=== PATIENT | male | born 1945 | race Caucasian/White ===

== ENCOUNTER → 2023-04-24 07:08 | Outpatient (REF) | payer MEDICARE, SELFPAY | LOC: HWRAD 07:08 | PROVIDERS: ATTENDING PHYSICIAN Physician Assistant; FAMILY PHYSICIAN Family Medicine | DX: E04.2 Nontoxic multinodular goiter (principal) | CPT/HCPCS: 76536 ==

== ENCOUNTER → 2023-10-31 08:27 | Outpatient (REF) | payer MEDICARE, SELFPAY | LOC: HWRAD 08:27 | PROVIDERS: ATTENDING PHYSICIAN Nurse Practitioner Adult Health; FAMILY PHYSICIAN Family Medicine | DX: Z87.891 Personal history of nicotine dependence (principal) | CPT/HCPCS: 71271 ==

== ENCOUNTER 2023-11-09 13:48 | Inpatient (IN) | payer MEDICARE, SELFPAY ==
[2023-11-09] VITALS (34 sets, daily range): BP systolic 50–151; BP diastolic 47–80; BMI 25.4
--- NOTE | 2023-11-09 09:31 | ED.GENMED ---
History of Present Illness
General
Chief Complaint: Abdominal Pain
Time Seen by Provider: 11/09/23 09:16
History of Present Illness
History of Present Illness:
78-year-old male with history of hypertension and hyperlipidemia presenting to the emergency department for lower abdominal pain. Patient reports symptoms for the past 2 days. Reports issues with constipation in the past. Reports that he has been
constipated, last bowel movement was 2 days ago, has been straining. He tried oral stool softeners without relief. Today he was unable to pass gas. Denies any significant abdominal surgeries. Denies any urinary complaints. Reports history of
hernia, however has not had issues with it. Reports episode of vomiting this morning. Denies chest pain or difficulty breathing. Denies any fever. Denies additional acute medical complaints.
Phy Exam
Physical Exam
Physical Exam:
General: Nontoxic, however uncomfortable secondary to pain
HEENT: protecting airway
Neck: appears supple
CV: Normal heart rate, regular rhythm, no evidence of cyanosis
Resp: No accessory muscle use, no increased work of breathing
Abd: Hypoactive bowel sounds, abdominal distention with generalized tenderness to the lower abdomen
Extremities: No deformities, no swelling, no erythema
Neuro: alert, no focal neurologic deficit
: deferred
Rectal: deferred
Psych: Normal affect
Skin: Intact
Course
Orders/Labs/Results
Orders:
Orders
11/09/23 09:25
0.9% Sodium Chloride 1000 ml [Nss] 1,000 ml IV BOLUS
Morphine Sulfate 4 mg IV NOW STA
Ondansetron Injectable [Zofran] 4 mg IV NOW STA
11/09/23 09:27
CT Abd/pelvis W Iv Cont Urgent
Comment:
Reason For Exam: lower abdominal pain, constipation, vomiting
11/09/23 09:36
CR Chest Portable - 1 View Urgent
Comment:
Reason For Exam: r/o free air
Reason Study Needs to be Portable: Patient Unstable
11/09/23 09:39
Complete Blood Count/With Diff Urgent
Comprehensive Metabolic Panel Urgent
Lactate Level [Lactic Acid] Urgent
Lipase Urgent
PTT Urgent
Prothrombin Time Urgent
11/09/23 10:08
0.9% Sodium Chloride 1000 ml [Nss] 1,000 ml IV BOLUS
11/09/23 11:03
Morphine Sulfate 4 mg IV NOW STA
11/09/23 11:20
Piperacillin/Tazo 4.5 Gram [Zosyn] 4.5 gram in 100 ml IV NOW
11/09/23 12:07
Urinalysis Reflex To Culture Urgent
Date Specimen was Collected: 11/09/23
Time Specimen was Collected: 11:59
Urine Microscopic Reflex Cult Urgent
Urine Culture Urgent
PATSY Source: U
Specimen Description:
Date Specimen was Collected: 11/09/23
Time Specimen was Collected: 11:59
11/09/23 13:04
Admit/Transfer Patient As Directed
Co-Sign Provider:
Level of Care: Inpatient admission
Assign to:: IMU- Intermediate Care
Physician / Group: Mikel
Diagnosis: perforated diverticulitis
Reason for Hospitalization: perforated diverticulitis
Expected length of stay greater than two midnights?: Yes
ELOS- Estimated Length of Stay in days: 5
I certify the patient meets the requirements for IP care: Yes
11/09/23 13:21
Code Status As Directed
Resuscitation Status: Full Code
11/09/23 13:34
HydrALAZINE [Apresoline] 10 mg IV Q6HPRN PRN
11/09/23 14:00
0.9% Sodium Chloride [Nss (Preservative Free)] 10 ml IV DAILY
Pantoprazole [Protonix IV] 40 mg IV DAILY
11/09/23 14:03
Lactate Level [Lactic Acid] Urgent
11/09/23 14:25
Morphine Sulfate 2 mg IV Q4HPRN PRN
11/09/23 Dinner
NPO
Allow oral meds: Yes
Allow clear liquids: No
NPO with Ice Chips: No
11/09/23 15:27
Ketorolac [Toradol] 10 mg IV Q6HPRN PRN
11/09/23 18:49
0.9% Sodium Chloride 1000 ml [Nss] 1,000 ml IV 100 mls/hr
Enoxaparin Sodium [Lovenox] 40 mg SC QPM
Ondansetron Injectable [Zofran] 4 mg IV Q6HPRN PRN
11/09/23 18:49
ColoRectal Surgery Consult Routine
Consulting Provider: Derek Boone
Was physician already notified: Yes
Reason for consult: perforated diverticulitis
Activity As Directed
Activity Level: Out of Bed-Early Mobility
Vital Signs As Directed
Frequency: Per unit guidelines
DX Deep Vein Thrombosis Video Routine
11/10/23 00:00
Piperacillin/Tazo 3.375 Gram [Zosyn] 3.375 gram in 50 ml IV Q6
11/10/23 04:32
Basic Metabolic Panel IN AM
Complete Blood Count/With Diff IN AM
Magnesium IN AM
Abnormal Lab Results
11/09/23 11/09/23
09:39 12:07
WBC 15.6 H 10^3/uL
(4.8-10.8)
RBC 4.04 L 10^6/uL
(4.70-6.10)
Hgb 12.7 L g/dL
(13.0-18.0)
Hct 37.0 L %
(39.0-52.0)
MCH 31.4 H pg
(27.0-31.0)
MPV 11.5 H fL
(7.4-10.4)
Abs Immat Gran (auto) 0.1 H 10^3/uL
(0-0.05)
Absolute Neuts (auto) 14.5 H 10^3/uL
(1.4-6.5)
Absolute Lymphs (auto) 0.8 L 10^3/uL
(1.2-3.4)
Immature Gran % 0.6 H %
(0-0.5)
Neutrophils % 89.9 H %
(42.2-75.2)
Lymphocytes % 5.3 L %
(20.5-51.1)
APTT 35.5 H Sec
(23.4-35.0)
Chloride 97 L mmol/L
(98-107)
BUN 24 H mg/dl
(9-20)
Glucose 121 H mg/dl
(70-99)
Lactic Acid 4.2 H* mmol/L
(0.7-2.0)
Urine Ketones 2+ A
(Negative)
Leukocyte Esterase Rfl Trace A
(Negative)
Urine WBC (Reflex) 11-15 A /HPF
(0-5)
Urine Bacteria (Reflex) Few A
(Negative)
11/09/23 09:39
11/09/23 09:39
Vital Signs
Initial and Last Documented VS:
Initial Vital Signs
Temp Pulse Resp BP Pulse Ox
97.9 F 86 18 127/80 98
11/09/23 08:24 11/09/23 08:24 11/09/23 08:24 11/09/23 08:24 11/09/23 08:24
Last Documented Vital Signs
Temp Pulse Resp BP Pulse Ox
98.4 F 60 14 114/54 97
11/10/23 07:00 11/10/23 07:00 11/10/23 07:00 11/10/23 07:11/10/23 07:00
MDM/Problems Addressed
MDM/Problems Addressed:
78-year-old male with history of hypertension and hyperlipidemia presenting for abdominal pain and constipation. Vital signs on arrival are normal.
On exam, patient is in no acute distress, however does appear relatively uncomfortable secondary to pain. Patient with hypoactive bowel sounds, abdominal distention and generalized tenderness to lower abdomen. In the setting of constipation, pain,
vomiting, concern for bowel obstruction. For this reason we will obtain laboratory analysis. Morphine administered for pain. Will start IV fluids. Will order lactic. Will also obtain upright chest x-ray to evaluate for free air in the setting
of possible bowel perforation.
10:10 -patient with significant elevation of lactic acid. Chest x-ray without sign of free air. Will continue IV fluids. Will redose pain medication. Pending CT imaging.
11:00 -patient with leukocytosis. With leukocytosis, elevated lactic acid, concern for infectious pathology. Will administer broad-spectrum antibiotics.
12:10 -received call from radiology, CT is positive for diverticulitis with perforation, no abscess. Message sent to surgery
*Critical Care Note
Total Time (30-74mins, 75-104mins- exclusive of procedures): 36
comment:
The high probability of a clinically significant, sudden or life threatening deterioration, sepsis and severe intra-abdominal pathology, required my full and direct attention, intervention and personal management. The aggregate critical care time
was 36 minutes. This time is in addition to time spent performing reported procedures but includes the following:
[x] Data Review and interpretation
[x] Patient assessment and monitoring of vital signs
[x] Documentation
[x] Medication orders and management
ED Attending Note
-
Portions of this chart may have been created with voice recognition software.� Occasional wrong word or��sound alike� substitutions may have occurred due to the inherent limitations of voice recognition software.
Discharge Plan
Departure
Patient Disposition: Admit
Date of Disposition: 11/09/23
Time of Disposition: 12:29
Presentation/result/management discussed w/ accepting MD/DO: Hospitalist
Condition: Serious
Discharge Problem:
Diverticulitis of colon with perforation
Interventions
Interventions:
*Risk Screen - Suicide Last Done: 11/09/23 20:56
*General Assessment Last Done: 11/09/23 09:25
*Neglect/Abuse Screening Last Done: 11/09/23 09:25
ED- Fall Risk Assessment Last Done: 11/09/23 09:25
*ED COVID-19 Vaccine History Last Done: 11/09/23 20:56
*Nursing Disposition Last Done: 11/09/23 16:23
JS-Wnbumw-Oekgohshjf Assessment Last Done: 11/09/23 09:25
Discharge Date and Time
Discharge Date/Time: 11/09/23 16:10
[2023-11-09] MEDS: NSS 1000 IV ×3 (09:33→20:08)
[2023-11-09] MEDS: MORPHINE SULFATE 4 MG IV ×2 (09:33→11:08)
[2023-11-09] MEDS: ZOFRAN 4 MG IV (09:34)
[2023-11-09 10:00] LABS: INR 1.15; PT 14.5 Sec (11.4-14.6)
[2023-11-09 10:01] LABS: APTT 35.5 Sec (23.4-35.0)
[2023-11-09 10:03] LABS: ALT (SGPT) 20 U/L (0-50); AST (SGOT) 34 U/L (17-59); Albumin 4.8 g/dl (3.5-5.0); Alkaline Phosphatase 95 U/L (38-126); Blood Urea Nitrogen 24 mg/dl (9-20); Calcium 9.7 mg/dl (8.4-10.2); Carbon Dioxide 29 mmol/L (22-30); Chloride 97 mmol/L (98-107); Estimated Creatinine Clearance 52 ml/min; Glucose 121 mg/dl (70-99); Lipase 79 U/L (23-300); Potassium 3.8 mmol/L (3.5-5.1); Sodium 142 mmol/L (135-145); Total Protein 7.5 g/dl (6.3-8.2); eGFR > 60.00
[2023-11-09 10:05] LABS: Lactic Acid 4.2 mmol/L (0.7-2.0)
[2023-11-09 10:35] LABS: Hemoglobin 12.7 g/dL (13.0-18.0); Mean Corp Hgb Conc. 34.3 g/dL (33.0-37.0); Mean Corpuscular Hgb 31.4 pg (27.0-31.0); Mean Corpuscular Volume 91.6 fL (80.0-94.0); Red Blood Cell Count 4.04 10^6/uL (4.70-6.10); White Blood Cell Count 15.6 10^3/uL (4.8-10.8)
[2023-11-09 10:36] LABS: Mean Platelet Volume 11.5 fL (7.4-10.4); Platelet Count 157 10^3/uL (130-400)
[2023-11-09 10:37] LABS: % Lymphocytes 5.3 % (20.5-51.1); % Monocytes 3.8 % (1.7-9.3); % Neutrophils 89.9 % (42.2-75.2); Red Cell Dist. Width 14.4 % (11.5-14.5)
[2023-11-09 10:38] LABS: % Basophils 0.4 % (0-2); % Immature Granulocytes 0.6 % (0-0.5); Absolute Lymphocytes 0.8 10^3/uL (1.2-3.4); Absolute Monocytes 0.6 10^3/uL (0.1-0.6); Absolute Neutrophils 14.5 10^3/uL (1.4-6.5)
[2023-11-09 10:39] LABS: Absolute Basophils 0.1 10^3/uL (0-0.2); Absolute Immature Granulocytes 0.1 10^3/uL (0-0.05); Nucleated Red Blood Cells % 0 % (-)
[2023-11-09] MEDS: ZOSYN 100 IV (12:00)
[2023-11-09 12:53] LABS: Urine Albumin Trace (Neg - Trace); Urine Bilirubin Negative (Negative); Urine Character Clear (Clear); Urine Color Yellow; Urine Glucose Negative (Negative); Urine Ketone 2+ (Negative); Urine Leukocyte Trace (Negative); Urine Nitrite Negative (Negative); Urine Occult Blood Negative (Negative); Urine Specific Gravity 1.005 (<1.030); Urine Urobilinogen Negative (Neg - 1+)
--- NOTE | 2023-11-09 13:03 | HPS.HSE ---
Family Physician
-
Family Physician: Sal Ryan
Chief Complaint
-
Lower abdominal pain
History of Present Illness
78-year-old male with history of hypertension, Giles esophagus and dyslipidemia who lives independently at home with the , presented to the hospital with the family complaining of the 3-day of the intermittent lower abdominal pain and
pressure, associated with chronic constipation worse in the last couple of day and have not increased urinary frequency and feeling of urgency, denies any rectal bleed or hematuria denies any fever or chill or cough or congestion. Admit the pain is
moderate in nature relieved anytime he is able to move his bowel. No colitis, and no triggering factor.
Denies chest pain or shortness of breath or cough or congestion.
Workup in the ER showed perforated diverticulum and surgery been contacted and recommended n.p.o., IV antibiotic and they will see patient on consult.
Patient awake, alert and oriented x 3 and holds appropriate conversation and accompanied by the and son and daughter at the bedside. Had colonoscopies in the past and he has no recollection of he was told he had diverticulosis on not.
Medical History
Past Medical History
Past Medical History: Reports None
Additional Past Medical History:
Past medical history reviewed:
Hypertension
Dyslipidemia
Giles esophagus
Social history: Lives with independently, former smoker and drinks 2 drinks daily for quite some time,
Family history: Reviewed and noncontributory
Past Surgical History: Reports None
Social History
Unable to obtain full social history at this time due to: Other
Living: Other
Family History
Family History: Other
Allergies / Home Medications
Allergies reflects when Allergies were last updated in [employer].
Home Medications with original date entered in [employer]
Allergy/Medication List:
Allergies
Allergy/AdvReac Type Severity Reaction Status Date / Time
No Known Allergies Allergy Verified 11/09/23 08:29
Home Medications
atorvastatin 20 mg tablet 20 mg PO DAILY 11/08/21
ferrous sulfate 325 mg (65 mg iron) tablet 325 mg PO BID 11/08/21
hydrochlorothiazide 12.5 mg capsule 12.5 mg PO DAILY 11/08/21
lisinopril 20 mg tablet 20 mg PO DAILY 11/08/21
omeprazole 20 mg tablet,delayed release 20 mg PO DAILY 11/08/21
vitamins A,C,U-syzf-ddtzvk 4,296 mcg-226 mg-90 mg capsule (PreserVision AREDS) 1 cap PO BID 11/08/21
Review of Systems
-
A 12 point ROS was completed and negative except as noted: Yes
Physical Exam
Vital Signs
Vital Signs
Temp Pulse Resp BP Pulse Ox
97.9 F 113 26 134/75 91
11/09/23 08:24 11/09/23 12:30 11/09/23 12:30 11/09/23 12:00 11/09/23 12:30
Physical exam:
General: Awake, alert and oriented x3, not in distress and holds appropriate conversation.
HEENT: No active discharge, ecchymosis or bruising, moist lips, tongue and mucous membrane.
Eyes: No discharge or red conjunctiva, no nystagmus, pupils are reactive and equal
Neck:Supple, no JVD no bruit no goiter.
Respiratory: Normal AP contour and diameter, normal chest wall movement, normal respiratory effort, no respiratory distress,
Lungs: Good air entry bilaterally, no wheezing or rhonchi, no rales or crackles
Heart: S1, S2 regular, normal rate, no added sound.
Gastrointestinal: Positive bowel sounds, soft, mild lower abdominal tenderness with no guarding or rigidity or organomegaly
Musculoskeletal: , no chest wall abnormality or tenderness. All joints and extremities have good range of motion, no muscle tenderness or any joint swelling or tenderness.
Extremities: No pitting edema, good peripheral pulses, good range of motion
Skin: Warm and dry, no ulceration, normal color.
Neurological: Awake, alert and oriented x3, no facial droop, moves extremities freely speech clear and comprehensive, good muscle tone
Psychiatric: Normal mood, normal thought and judgment, normal affect,
Physical Exam
General: Other
Laboratory Results
-
11/09/23 09:39
11/09/23 09:39
Laboratory Results
PT 14.5 Sec (11.4-14.6) 11/09/23 09:39
INR 1.15 11/09/23 09:39
APTT 35.5 Sec (23.4-35.0) H 11/09/23 09:39
Lactic Acid 4.2 mmol/L (0.7-2.0) H* 11/09/23 09:39
Total Bilirubin 1.0 mg/dl (0.2-1.3) 11/09/23 09:39
AST 34 U/L (17-59) 11/09/23 09:39
ALT 20 U/L (0-50) 11/09/23 09:39
Alkaline Phosphatase 95 U/L (38-126) 11/09/23 09:39
Lipase 79 U/L (23-300) 11/09/23 09:39
CT abdomen and pelvis: Large focal perforation of the mid sigmoid colon due to acute diverticulitis . No evidence of abscess formation.
Bilateral renal cysts.
Mild fecal material in the colon.
Small hiatal hernia
Mild prostate hypertrophy
Data Reviewed
-
CT Scan: Image Personally Visualized and interpreted, Report Reviewed by me, Discussed with Patient and Discussed with Family
Lab Data: Labs Reviewed by me, Discussed with Patient and Discussed with Family
Old Records: Reviewed
Impression/Plan
-
IMPRESSION:
Pleasant 78-year-old male with history of hypertension and Giles's esophagus, presented to the hospital complaining of the lower abdominal pain and pressure over the last few day workup showed perforated diverticulum.
Sepsis, with leukocytosis white cell count more than 15 and tachycardia heart rate went as high as 113, likely secondary to perforated diverticulum
-Keep n.p.o. even for meds
-Colorectal surgery been contacted and they are aware, consult colorectal surgery
-IV Zosyn
-IV fluid
-IV morphine and Zofran as needed
-Try to avoid rectal Tylenol will put him on Toradol as needed for moderate pain and fever if any
-Diverticulitis appropriately diverticulitis explained to the patient and family in detail and expressed understanding
-Recheck labs.
Perforated diverticulitis: Manage as above
Abnormal urinalysis: Other than feeling increased urgency, UTI could be a possibility will be related to perforated diverticulitis causing bladder irritation.
-Patient already on Zosyn
-Urine culture
Hypertension:
-Hold his home lisinopril and HCTZ
-Add hydralazine as needed for systolic more than 160
Giles esophagus
-On omeprazole orally we will hold it and changed to Protonix IV
-Dyslipidemia will hold Lipitor for now.
All discussed with the patient and the family in detail and expressed understanding
CODE STATUS full code
DVT prophylax Lovenox
[2023-11-09 13:14] LABS: Urine Bacteria Few (Negative); Urine Red Blood Cell 0-2 /HPF (0-2)
--- NOTE | 2023-11-09 13:28 | CON.CRS ---
Addendum entered and electronically signed by Derek Boone MD 11/09/23 14:36:
I saw and examined the patient independently.
The Music Director's note was reviewed and I agree with the note, assessment and plan except where noted below.
Comment: This is a 78-year-old male who presents with 3-day history of worsening left lower quadrant pain with associated chills, vomiting. He has had somewhat similar pain in the past that resolved on its own. He does have a colonoscopy from
roughly 8 years ago which noted diverticular disease but no other concerning findings. Here he is noted to be tachycardic, diffusely tender to palpation with rebound and guarding and with a leukocytosis to 15,000. CT scan demonstrates sigmoid
diverticulitis with scattered dots of free air but no overt abscess.
Given his exam I do not think antibiotics alone will suffice. We did discuss operative options from laparoscopic lavage to open Kalina's procedure. He understands the surgical plan will primarily depend on what is found intraoperatively, for now
we will plan to start with a laparoscopic lavage.
N.p.o., IV fluids, IV antibiotics.
Risks/Benefits/Alternatives, expected postoperative course, possible ostomy, drains and possible complications (bleeding, infection, injury to surrounding structures, acute/chronic pain) discussed at length. Patient wishes to proceed with surgery.
All questions answered. Consent obtained.
I spent roughly 60 minutes in total for the care of this patient today including direct patient care and counseling, reviewing labs, imaging, coordination of care, as well as documentation.
Original Note:
Medical History
-
Chief Complaint: abdominal pain
History of Present Illness:
This is a 78 yo male with a h/o HTN and CKD who presents with lower abdominal pain which began about 3 days ago and has progressively worsened. He has been passing flatus with some straining but has not been had a BM for 2 days. He denies changes to
voiding pattern. He had an episode of nausea with vomiting this morning but none since. He denies fevers or chills. He notes he is comfortable at rest but does have pain to light palpation to the lower abdomen right greater than left. His last
colonoscopy was about 8 years ago with noted diverticular disease of the sigmoid and descending colon noted on that study. He notes no prior incidence of diverticulitis in the past.
Past Medical History
Past Medical History: GERD (Giles's ), HTN, Hypercholesterolemia, Renal Failure (CKD) and Other (autoimmune leukopenia, iron deficiency anemia)
Past Surgical History: Orthopedic (left hand)
Social History
Tobacco: Former Smoker (quit 2013)
Family History
Family History: Reviewed & Not Pertinent
Allergies / Home Medications
Allergy/AdvReac Type Severity Reaction Status Date / Time
No Known Allergies Allergy Verified 11/09/23 08:29
�Medication �Instructions �Recorded �Confirmed �Type
atorvastatin 20 mg tablet 20 mg PO DAILY 11/08/21 11/09/23 History
ferrous sulfate 325 mg (65 mg 325 mg PO BID 11/08/21 11/09/23 History
iron) tablet
hydrochlorothiazide 12.5 mg capsule 12.5 mg PO DAILY 11/08/21 11/09/23 History
lisinopril 20 mg tablet 20 mg PO DAILY 11/08/21 11/09/23 History
omeprazole 20 mg tablet,delayed 20 mg PO DAILY 11/08/21 11/09/23 History
release
vitamins A,C,S-oiqd-fsgzzg 4,296 1 cap PO BID 11/08/21 11/09/23 History
mcg-226 mg-90 mg capsule
(PreserVision AREDS)
Review of Systems
-
History Source: Patient and Family
All other systems: Negative unless noted
A 10 point review of systems was completed, and was negative except as per HPI.
Physical Exam
Vital Signs
Temp 97.9 F 11/09/23 08:24
Pulse 113 11/09/23 12:30
Resp Rate 26 11/09/23 12:30
Blood pressure 134/75 11/09/23 12:00
SaO2 91 11/09/23 12:30
11/08/23 11/09/23 11/10/23
06:59 06:59 06:59
Actual Weight 71.214 kg
Body Mass Index (BMI) 25.4
Lab Results / Allergies
11/09/23 09:39
11/09/23 09:39
WBC 15.6 10^3/uL (4.8-10.8) H 11/09/23 09:39
Hgb 12.7 g/dL (13.0-18.0) L 11/09/23 09:39
Hct 37.0 % (39.0-52.0) L 11/09/23 09:39
Plt Count 157 10^3/uL (130-400) 11/09/23 09:39
Abs Immat Gran (auto) 0.1 10^3/uL (0-0.05) H 11/09/23 09:39
Neutrophils % 89.9 % (42.2-75.2) H 11/09/23 09:39
Allergy/AdvReac Type Severity Reaction Status Date / Time
No Known Allergies Allergy Verified 11/09/23 08:29
Physical Exam
General: Well Developed and Comfortable
HEENT: Moist Mucous Membranes
Respiratory: Non Labored Respirations
GI: Soft, Tender (significantly tender to BLLQ R>L, no tenderness to upper abdomen) and Distended (mild)
Skin: Warm and Dry
Neuro: Awake, Alert and AO x 3
Psych: Calm
Data Reviewed
-
CT Scan: Image Personally Visualized and interpreted, Report Reviewed by me, Discussed with Physician, Discussed with Nurse, Discussed with Patient and Discussed with Family
Labs: Labs Reviewed by me, Discussed with Physician, Discussed with Nurse, Discussed with Patient and Discussed with Family
Old Records: Reviewed
Assessment / Plan
-
78 yo male presenting with complicated diverticulitis with focal air consistent with perforation of the mid sigmoid colon without associated abscess. +Constipation but passing some small amounts of flatus x2days. Leukocytosis present with
significant tenderness to lower abdomen. Tachycardic but afebrile with stable BP.
--Keep NPO for bowel rest
--Continue IV abx
--IVF while NPO
--Analgesics prn
Discussed disease process with patient. If surgery is required, will likely require colostomy for diversion in the emergency setting. Will review films/imaging with attending surgeon to determine if emergent surgery is warranted today. Will follow
exams/vitals closely.
[2023-11-09] MEDS: OFIRMEV 1000 MG IV (14:14)
[2023-11-09 14:28] LABS: Lactic Acid 0.8 mmol/L (0.7-2.0)
--- NOTE | 2023-11-09 14:36 | W.SUR.PREOP ---
Pre-Operative Surgical Note
-
I have examined this patient prior to the performance of the scheduled procedure.
The patient's condition is unchanged from the time of the current History and
Physical and the patient is able to undergo the scheduled procedure.
[2023-11-09] MEDS: TORADOL 10 MG IV (15:51)
--- NOTE | 2023-11-09 18:58 | W.IMMPOSTOP ---
Surgical Immed Post Op Note
-
Primary Surgeon: Derek Booen MD
Assisting Surgeon: Jenae Baez
Pre-op Diagnosis: Perforated diverticulitis
Post-op Diagnosis: Same
Procedure Performed: Laparoscopic, converted to open sigmoid colectomy
Anesthesia Type: General
Specimen / Cultures: Sigmoid colon
Estimated Blood Loss: 23 cc
Complications: None
Operative Findings: Hinchy IV diverticulitis with stool and pus primarily confined to the pelvis. Minimal inflammation. We began our dissection laparoscopically but failed to progress distally given how stuck things were in the pelvis so we
converted to an open procedure. Disease segment of sigmoid colon removed. Rectal stump tagged with Prolene stitch. Patient left in discontinuity, with plan to return to the OR on Saturday.
POST OP PLAN:
Imaging: None
Labs: Routine AM
Diet: Strict n.p.o. except for sips with p.o. meds
Analgesia: IV Tylenol, Toradol and Dilaudid as needed
Neuro/vascular checks: q4h
AC/AP: Hold Therapeutic AC, Ok for DVT PPx
Activity: Ad Mounika
Wound/Incisions/Drains: Routine, ANGEL to bulb suction
Abx: Continue antibiotics
Dispo: RNF, anticipate return to the OR on Saturday
[2023-11-09] MEDS: OFIRMEV 100 IV (19:43)
[2023-11-09] MEDS: LOVENOX 40 MG SC (19:50)
[2023-11-09] MEDS: NSS (PRESERVATIVE FREE) 10 ML IV (19:54)
[2023-11-09] MEDS: PROTONIX IV 40 MG IV (19:54)
--- NOTE | 2023-11-09 21:45 | PTCARENOTE ---
20:45 pt rec'vd from PACU, aaox3, NG tube via L nare intact marked at 53, set to low inter suction. Primaseal drsg to mid abd site pinpoint staining, bilateral to mid primaseal drsg , 2x2 telfa drsg covered with tegaderm and RLQ with sponge dressing
over J-P tubing. Pt vs WNL, IVF in place, denies pain at this time, oriented to unit.
[2023-11-09] MEDS: ZOSYN 50 IV (23:57)
[2023-11-10] MEDS: OFIRMEV 100 IV ×3 (01:38→13:33)
[2023-11-10 03:17] VITALS: BP 90/61
[2023-11-10] MEDS: ZOSYN 50 IV ×3 (05:59→17:14)
[2023-11-10] MEDS: NSS 1000 IV ×2 (05:59→17:14)
[2023-11-10 06:03] LABS: % Basophils 0.1 % (0-2); % Immature Granulocytes 1.5 % (0-0.5); % Lymphocytes 2.7 % (20.5-51.1); % Monocytes 3.8 % (1.7-9.3); % Neutrophils 91.9 % (42.2-75.2); Absolute Immature Granulocytes 0.3 10^3/uL (0-0.05); Absolute Lymphocytes 0.5 10^3/uL (1.2-3.4); Absolute Monocytes 0.7 10^3/uL (0.1-0.6); Absolute Neutrophils 17.9 10^3/uL (1.4-6.5); Hematocrit 29.7 % (39.0-52.0); Mean Corp Hgb Conc. 33.7 g/dL (33.0-37.0); Mean Corpuscular Hgb 32.8 pg (27.0-31.0); Mean Corpuscular Volume 97.4 fL (80.0-94.0); Mean Platelet Volume 11.7 fL (7.4-10.4); Nucleated Red Blood Cells % 0 % (-); Platelet Count 99 10^3/uL (130-400); Red Blood Cell Count 3.05 10^6/uL (4.70-6.10); Red Cell Dist. Width 14.4 % (11.5-14.5); White Blood Cell Count 19.5 10^3/uL (4.8-10.8)
[2023-11-10 06:18] LABS: Blood Urea Nitrogen 23 mg/dl (9-20); Carbon Dioxide 25 mmol/L (22-30); Chloride 102 mmol/L (98-107); Estimated Creatinine Clearance 44 ml/min; Glucose 82 mg/dl (70-99); Potassium 3.7 mmol/L (3.5-5.1); Sodium 140 mmol/L (135-145); eGFR 56.93
[2023-11-10 07:00] VITALS: BP 114/54
[2023-11-10] MEDS: CALCIUM CHLORIDE 10% SYRINGE 70 MG IV (08:22)
[2023-11-10] MEDS: NSS (PRESERVATIVE FREE) 10 ML IV (08:23)
[2023-11-10] MEDS: PROTONIX IV 40 MG IV (08:23)
--- NOTE | 2023-11-10 10:20 | CM ---
Patient who is s/p colectomy. Plan OR tomorrow. O2 2L. ANGEL drain. Receiving IV Abx. NPO/IVF.
Met with patientwho resides with his ex- in a 2 story house with 3 EMERALD.
The patient has been independent in ADLs and ambulation.
The patient has no DME, prior VN or SNF.
PCP - Sal Ryan
Pharmacy - [facility]
Patient unsure he will want VN at home, possibly if any drains remain at d/c.
CM continuing to follow for d/c needs.
Plan home.
[2023-11-10 11:00] VITALS: BP 115/61
--- NOTE | 2023-11-10 11:02 | W.PN.GS2 ---
Addendum entered and electronically signed by Derek Boone MD 11/10/23 11:21:
I saw and examined the patient independently.
The Loading Manager's note was reviewed and I agree with the note, assessment and plan except where noted below.
Comment: This is a 78-year-old male with Hinchy 4 perforated diverticulitis now postoperative day 1 laparoscopic converted to open sigmoidectomy. Patient in discontinuity.
Strict n.p.o. except for meds. NG tube to low intermittent wall suction.
Will return to the OR tomorrow for planned second look operation and hopefully intracorporeal anastomosis versus ostomy pending on the inflammation in the surgical field.
Continue Cheney
Continue IV fluids, antibiotics
Continue ANGEL to bulb suction
General Surgery will continue to follow.
Original Note:
Today's Communication / Plan
-
OR tomorrow
NGT to suction
Assessment / Plan
-
78 yo male who presented with acute perforated sigmoid diverticulitis now POD #1 lap converted to open sigmoidectomy, patient in discontinuity with rectal stump tagged intraop
Afebrile since surgery, tachycardia resolved. VSS
Leukocytosis present in setting of acute infection
Mild acute anemia present likely d/t hemodilution with volume resuscitation, minimal intraop blood loss and no evidence of active bleeding
--Continue strict NPO with NGT to LIWS
--Plan to return to OR tomorrow for laparotomy with intracorporeal anastomosis
--Continue cheney
--Continue IVF
--C/W ANGEL drain
--C/W ABX: OR cx sent and pending
--Continue analgesics/antiemetics as needed
--VTE ppx with lovenox and scds
Subjective Data
-
Date of Service: November 10, 2023
Patient seen and examined at bedside with Dr. Boone. Denies n/v. Minimal discomfort to left abd.
Objective Data
-
Intake and Output
11/09/23 11/10/23 11/11/23
06:59 06:59 06:59
Intake Total 1969 / 1969
Output Total 1110 / 1110
Balance 860 / 860
Intake:
IV fluids (Total) 1400 / 1400
Normosal 400 / 400
IV piggybacks 450 / 450
Amount instilled into GI Tube ( 120 / 120
Total)
[place] Sump 120 / 120
Output:
Drain Output (Total) 170 / 170
Right Lower Abdomen Varinder- 170 / 170
Carter
Gastrointestinal tube output ( 130 / 130
Total)
[place] Sump 130 / 130
Urine, Cheney 610 / 610
Urine, Voided 200 / 200
Vital Signs
Temp Pulse Resp BP Pulse Ox
98.4 F 60 14 114/54 97
11/10/23 07:00 11/10/23 07:00 11/10/23 07:00 11/10/23 07:00 11/10/23 07:00
Lab Results
11/10/23 04:32
11/10/23 04:32
Calcium 7.0 mg/dl (8.4-10.2) L D 11/10/23 04:32
Magnesium 2.0 mg/dl (1.6-2.3) 11/10/23 04:32
Total Bilirubin 1.0 mg/dl (0.2-1.3) 11/09/23 09:39
AST 34 U/L (17-59) 11/09/23 09:39
ALT 20 U/L (0-50) 11/09/23 09:39
Alkaline Phosphatase 95 U/L (38-126) 11/09/23 09:39
Total Protein 7.5 g/dl (6.3-8.2) 11/09/23 09:39
Albumin 4.8 g/dl (3.5-5.0) 11/09/23 09:39
Physical Exam
-
NAD
ABD soft, nd, mild tenderness to left side
Incisions with intact dressing, shadowing on midline dressing (aquacel), NGT low outputs (bilious)
Cheney with clear, yellow urine
--- NOTE | 2023-11-10 11:11 | W.PN.HOSP.TC ---
Today's Communication/Plan
-
Strict n.p.o. status
Continue IV Zosyn empirically and follow cultures
Planning for OR tomorrow for anastomosis
Hold antihypertensive agents for now
Assessment / Plan
Assessment / Plan
#Sepsis secondary to perforated diverticulum
#S/P open sigmoid colectomy
#Acute diverticulitis
-Presented with lower abdomen pain, constipation and vomiting over multiple days
-CT A/P with IV contrast showed large focal perforation of the mid sigmoid colon with acute diverticulitis
-No evidence of abscess formation; was started on IV Zosyn empirically on arrival
-Initially to be managed conservatively though blood pressure worsened necessitating early LR
-Successful open sigmoid colectomy performed yesterday, no reanastomosis attempted as of yet
-Surgery following, planning for anastomosis tomorrow
Plan
-Continue strict n.p.o. status, NGT to LIWS
-Continue with ANGEL drain and monitor output
-Continue with empiric Zosyn and follow-up cultures
-Continue with analgesic/antiemetic regimen
-Trend CBC consider supportive transfusions for anemia/thrombocytopenia
-Plan for OR tomorrow for intracorporeal anastomosis
#Leukocytosis
-Neutrophilic predominance, secondary to above
-Currently on IV antibiotics as above
-Will trend daily CBC
#Postsurgical anemia and thrombocytopenia
-Yesterday both cell lines were normal on CBC, hemoglobin 10 today, platelet count 99
-Suspect this is all related to the surgical procedure he had, also reactive process from bowel perforation
-Will trend CBC and consider supportive transfusions as above
#Hypocalcemia
-Calcium was 9.7 on labs yesterday, 7.0 on morning labs today
-Unclear etiology, possibly dilutional though did not receive that much fluid
-Ordered 2 g of calcium chloride for this morning to supplement
-Will continue to trend BMP for now, replete calcium as needed
-Consider obtaining vitamin D levels
#Abnormal UA
-Cannot rule out UTI, patient had urgency though likely related to perforated bowel
-Urine culture was obtained in the ED and results are currently pending
-On IV Zosyn for bowel coverage as above, provide urine coverage as well
#Hypertension
-No known history of systemic hypertensive complication
-Home medications include lisinopril and hydrochlorothiazide
-Both medications are currently held, blood pressure became soft prior to the OR yesterday
#GERD/Giles's esophagus
-Status post EGD with pathological confirmation
-Remains on PPI therapy; transition to IV while n.p.o.
DVT prophylaxis: SCDs
Diet: Strict NPO, NGT to LIWS
CODE STATUS: Full code
Anticipated Discharge: > 48 hours
Subjective/Interval History
-
Date of Service: November 10, 2023
Seen and examined at bedside. No acute events overnight. He remains hemodynamically stable, on room air, afebrile this morning.
Postoperative day 1 from bowel resection with surgical team yesterday for perforated diverticulum. He remains with NGT in place, n.p.o. status.
Overall he states he feels pretty well this morning. He denies any chest pain, fevers or chills, shortness of breath, nausea, vomiting, urinary issues, abnormal bleeding or bruising, paresthesias or weakness. He does have some pain to the abdomen
though it is improving. Pain is worst in the LLQ, the patient states his response to palpation is in excess of the pain he feels, conditioned to respond that way
Objective Data
-
Labs:
Laboratory Results
11/10/23
04:32
WBC 19.5 H
Hgb 10.0 L D
Hct 29.7 L
Plt Count 99 L D
Sodium 140
Potassium 3.7
Chloride 102
Carbon Dioxide 25
BUN 23 H
Creatinine 1.3
Glucose 82
Calcium 7.0 L D
Vital Signs:
Vital Signs
Temp Pulse Resp BP Pulse Ox
98.5 F 60 14 115/61 96
11/10/23 11:00 11/10/23 11:00 11/10/23 11:00 11/10/23 11:00 11/10/23 11:00
I&O
11/09/23 11/10/23 11/11/23
06:59 06:59 06:59
Intake Total 1969
Output Total 1110 / 1110
Balance 860 / 860
Review of Systems
-
History Source: Patient
All other systems: Reviewed and negative
Physical Exam
-
General: Well Nourished, No Apparent Distress and Comfortable; Negative Pain
HEENT: Normocephalic, Atraumatic, Moist Mucous Membranes, Anicteric and Other (NGT in place)
Respiratory: Clear to Auscultation and Non Labored Respirations; Negative Wheezes, Rales, Rhonchi or Accessory Resp Muscle Use
Cardiac: Regular Rhythm and S1/S2; Negative Murmur, Rub, JVD or Gallop
GI: Soft, Nondistended, Normal Bowel Sounds and Tender (Tender to LLQ, voluntary guarding, no rigidity)
Musculoskeletal: No Clubbing, No Cyanosis and No Edema
Skin: Warm, Dry and Other (Surgical incision with bandaging overlying, no surrounding erythema); Negative Rash
Neuro: AO x 3, Nonfocal/Grossly Intact and Central Nerve's Intact
Data Reviewed
-
Labs: Labs Reviewed by me and Discussed with Patient
--- NOTE | 2023-11-10 12:53 | OR.RPT ---
Operative Report
Operative Report
Patient Name: Antelmo Fox
: 1945
Date of Operation: 11/09/2023
Preoperative Diagnosis: Perforated diverticulitis
Postoperative Diagnosis: Same
Procedure(s):
1. Laparoscopic converted to open sigmoid colectomy
2. Washout of an intra-abdominal abscess
Surgeon(s):
Dr. Boone
Manager Medicare(s):
GABBY Paez
Anesthesia: General
Estimated Blood Loss: 23 cc
Urine Output: See anesthesia records
Drains/Lines/Implants: 19 Kyrgyz round Ji drain into the pelvis and up the left colic gutter
Specimens: Sigmoid colon
Indication for surgery:
This is a 78-year-old male who presents with his first episode of diverticulitis found to have significant free air on CT imaging and peritonitic on exam. Risk benefits and alternatives discussed with patient and his family who ultimately agreed
and consented for surgery.
Operative Findings: Hinchy IV diverticulitis with stool and pus primarily confined to the pelvis. Minimal inflammation. We began our dissection laparoscopically but failed to progress distally given how stuck things were in the pelvis so we
converted to an open procedure. Disease segment of sigmoid colon removed. Rectal stump tagged with Prolene stitch. Patient left in discontinuity, with plan to return to the OR on Saturday.
Details of the operation:
The patient was brought to the operating room and positioned supine on the operating table. General anesthesia was induced, followed by successful endotracheal intubation. A Brar catheter was placed followed by an OG tube. The patient was then
moved into the dorsal llithotomy position with both arms tucked. The abdomen was prepped and draped in the usual fashion. A team timeout was performed confirming the patient, operation and that appropriate preoperative medications have been
administered. The abdomen was entered using an open infraumbilical Wu technique. Pneumoperitoneum was established to 15 mmHg and we confirmed that no injury occurred on entry. We then placed three 5 mm ports, 2 in the right lower quadrant and
1 in the left lower quadrant. The abdomen was inspected and there was no significant purulence noted in the 4 quadrants however there was collection in the pelvis this was suctioned up the collection began to turn darker in color concerning for a
fecal perforation. Careful dissection of the distal sigmoid colon off of the left pelvic brim was notable for a very large hole in the colonic wall. At this point it was clear simple lavage would not be sufficient so I elected to begin mobilizing
the colon which I did from a lateral to medial approach. His sigmoid colon was fairly short though had very extensive diverticular disease. A window in the sigmoid mesentery was made which I used to march distally along towards the rectum.
However was clear given the induration and inflammation in the area that it would be difficult to free up/dissect past the perforation safely so we elected to convert to an open procedure.
Using our umbilical entry point a lower midline incision was made to just above the pubis. A large Rigoberto wound retractor was placed. A large blue towel was used to mendoza the small bowel and keep it out of the field. The peritoneum along the
rectum was incised using Bovie cautery and extended down to the level of the rectum. Using a bipolar energy device the mesorectum was carefully divided around the lateral rectal stalks up to the rectal wall till we were well past the perforation
and onto healthy rectum. We then turned our attention proximally and identified an area of descending colon that was free of disease. A window was made in the mesentery and the colon was divided using 60 purple JANNY stapler. We then divided the
mesentery close to the bowel down to our previous dissection at the rectum. There, a TA 30 was passed around the rectum and the specimen was divided and passed off the field. At this point all gloves were changed and dirty instruments were
disposed of. The field was flooded with warm saline. The area of the pelvis was mildly inflamed but there was no significant residual contamination. I weighed the options of primary anastomosis at this operation but elected to do delayed
anastomosis to allow further time for the inflammation/infection in this area to be treated. The rectal stump was then marked with a long 0 Prolene suture. Hemostasis was confirmed and the blue towel was removed. A 19 [place]z round Ji drain was
introduced through one of the previous port sites and passed into the pelvis and up the left colic gutter. It was secured at the skin with a 2-0 nylon suture. The fascia was then closed using a running 0 PDS suture tied at each apex and run with
0.5 cm bites and 0.5 cm travel till they were met in the middle and tied together. The subcutaneous tissue was then irrigated as were the port sites and all skin incisions were then closed with mercedes. Dressing in the form of Aquacel was applied.
All counts were correct at the end of procedure. The patient tolerated the procedure well. They were extubated and taken to the recovery area hemodynamically stable with plans to be admitted to the floor and plan for a takeback and intracorporeal
anastomosis in 2 days.
I was the attending physician and performed the procedure with assistance from the LACE INSPECTOR student above. I was present for all portions of the case
Derek Boone MD
--- NOTE | 2023-11-10 13:25 | PTCARENOTE ---
pt c/o left eye soreness. No change in vision or blurriness, just clear drainage and irritation. Warm compressed applied which help. will monitor. Otherwise pt comfortable no c/o pain. NGT to LIMS brown drainage, urine is bloody. pt reluctant to get
OOB but continue to encourage to even sit up on side of bed.
[2023-11-10 15:00] VITALS: BP 120/65
[2023-11-10 19:09] VITALS: BP 137/63
[2023-11-10 23:14] VITALS: BP 148/63
[2023-11-11] VITALS (15 sets, daily range): BP systolic 70–176; BP diastolic 69–97
[2023-11-11] MEDS: NSS 1000 IV ×3 (00:15→20:09)
[2023-11-11] MEDS: ZOSYN 50 IV ×5 (00:18→23:51)
[2023-11-11] MEDS: TORADOL 10 MG IV ×3 (01:57→20:55)
[2023-11-11 07:18] LABS: INR 1.26; PT 15.6 Sec (11.4-14.6)
[2023-11-11 07:19] LABS: APTT 40.4 Sec (23.4-35.0)
[2023-11-11 07:39] LABS: Blood Urea Nitrogen 29 mg/dl (9-20); Calcium 8.6 mg/dl (8.4-10.2); Carbon Dioxide 25 mmol/L (22-30); Chloride 106 mmol/L (98-107); Estimated Creatinine Clearance 47 ml/min; Glucose 97 mg/dl (70-99); Potassium 3.6 mmol/L (3.5-5.1); Sodium 141 mmol/L (135-145); eGFR > 60.00
[2023-11-11] MEDS: PROTONIX IV 40 MG IV (08:01)
[2023-11-11] MEDS: NSS (PRESERVATIVE FREE) 10 ML IV (08:02)
[2023-11-11 08:25] LABS: Hematocrit 30.6 % (39.0-52.0); Hemoglobin 10.4 g/dL (13.0-18.0); Mean Corpuscular Hgb 32.4 pg (27.0-31.0); Mean Corpuscular Volume 95.3 fL (80.0-94.0); Mean Platelet Volume 11.8 fL (7.4-10.4); Platelet Count 107 10^3/uL (130-400); Red Blood Cell Count 3.21 10^6/uL (4.70-6.10); Red Cell Dist. Width 14.3 % (11.5-14.5); White Blood Cell Count 14.6 10^3/uL (4.8-10.8)
--- NOTE | 2023-11-11 09:04 | WOUNDNOTE ---
[facility] RN Note: Stoma marked patient L abdomen per Jenae Baez, EXERCISE RIDER's request. Clarified L side stoma marking only with Jenae. Stoma marked patient in lying, sitting and standing positions over the rectus muscle avoiding skin creases. Stoma marking
limited d/t abdominal midline post op incisional dressing. Stoma marilyn 5.3cm to left of midline in LUQ avoiding lower rib cage. Patient instructed surgeon makes the final decision with stoma placement.
--- NOTE | 2023-11-11 09:14 | W.PN.HOSP.TC ---
Today's Communication/Plan
-
stoma marking now
repeat OR today for intracorporeal anastomosis procedure vs stoma placement
continue NPO, IVF, IV abx
Assessment / Plan
Assessment / Plan
Assessment:
Severe Sepsis POA (Fever, leukocytosis, lactic acidosis)
Acute complicated diverticulitis with perforated diverticulum
- CT A/P with IV contrast showed large focal perforation of the mid sigmoid colon with acute diverticulitis
- s/p Laparoscopic, converted to open sigmoid colectomy 11/08
- continue Zosyn, day 3
- continue IVF
- continue NPO status
- continue NGT to LIWS
- planned for repeat OR today for intracorporeal anastomosis procedure vs stoma placement
Acute anemia/thrombocytopenia
- likely from acute illness, sepsis, post-op
- monitor daily counts and follow for transfusion needs
Hypocalcemia
- s/p 2 gram CaCl, with improvement
- trend BMP
Abnormal UA
- Ucx without growth
Essential Hypertension
- holding home meds, lisinopril and hydrochlorothiazide in setting of sepsis
GERD/Giles's esophagus
- continue IV PPI
DVT ppx: SCDs
Code: Full
Anticipated Discharge: > 48 hours
Subjective/Interval History
-
Date of Service: November 11, 2023
seen this AM, while he was having stoma sites marked
having positional abdominal pain, declines pain meds
no nausea/vomiting
Objective Data
-
Labs:
Laboratory Results
11/11/23
06:47
WBC 14.6 H
Hgb 10.4 L
Hct 30.6 L
Plt Count 107 L
PT 15.6 H
INR 1.26
APTT 40.4 H
Sodium 141
Potassium 3.6
Chloride 106
Carbon Dioxide 25
BUN 29 H
Creatinine 1.2
Glucose 97
Calcium 8.6 D
Vital Signs:
Vital Signs
Temp Pulse Resp BP Pulse Ox
97.8 F 66 19 165/85 98
11/11/23 07:41 11/11/23 07:41 11/11/23 07:41 11/11/23 07:41 11/11/23 07:41
I&O
11/10/23 11/11/23 11/12/23
06:59 06:59 06:59
Intake Total 1970 / 1970 1700 / 1700 1300 / 1300
Output Total 1110 / 1110 635 / 1235 1130 / 1130
Balance 860 / 860 1065 / 465 170 / 170
Physical Exam
-
General: No Apparent Distress
HEENT: Normocephalic
Respiratory: Negative Wheezes
Cardiac: Regular Rhythm and S1/S2
GI: Tender
Genito-urinary: No Costovertebral Tender
Neuro: AO x 3
Psych: Calm
Data Reviewed
-
Total Time Spent with Patient (in minutes): 48
Labs: Labs Reviewed by me
--- NOTE | 2023-11-11 09:15 | W.PN.GS2 ---
Today's Communication / Plan
-
Patient to return to OR for planned second look. Will decide between intracorporeal anastomosis vs ostomy pending on inflammation in the surgical field.
Assessment / Plan
-
Assessment:
78 yo male who presented with acute perforated sigmoid diverticulitis now POD #2 lap converted to open sigmoidectomy, patient in discontinuity with rectal stump tagged with Prolene stitch, return to the OR today
Plan:
Afebrile since surgery, tachycardia resolved. VSS
Leukocytosis present in setting of acute infection
Mild acute anemia present likely d/t hemodilution with volume resuscitation, minimal intraop blood loss and no evidence of active bleeding (Hb stable)
--Continue strict NPO with NGT to LIWS
--Plan to return to OR today for laparotomy with intracorporeal anastomosis versus Ostomy pending inflammation in the surgical field
--Continue Brar
--Continue IVF
--C/W ANGEL to bulb suction
--C/W ABX: OR cx sent and pending
--Continue analgesics/antiemetics as needed
DVT prophylaxis: Lovenox and scds
Subjective Data
-
Date of Service: November 11, 2023
Patient seemed in good spirits, said he had no adverse events overnight. Patient reported no pain in the abdomen other than some incision site tenderness. Patient said he has been feeling some gurgling in his stomach which he feels like hunger
pangs.
Objective Data
-
Intake and Output
11/10/23 11/11/23 11/12/23
06:59 06:59 06:59
Intake Total 1969 / 1969 1700 / 1700 1300 / 1300
Output Total 1110 / 1110 635 / 1235 1130 / 1130
Balance 860 / 860 1065 / 465 170 / 170
Intake:
IV fluids (Total) 1400 / 1400 1200 / 1200 1200 / 1200
Normosal 400 / 400
IV piggybacks 450 / 450 350 / 350 100 / 100
Amount instilled into GI Tube ( 120 / 120 150 / 150
Total)
[place] Sump 120 / 120 150 / 150
Output:
Drain Output (Total) 170 / 170 35 / 35 30 / 30
Right Lower Abdomen Varinder- 170 / 170 35 / 35 30 / 30
Carter
Gastrointestinal tube output ( 130 / 130 250 / 850 600 / 600
Total)
[place] Sump 130 / 130 250 / 850 600 / 600
Urine, Brar 610 / 610 350 / 350 500 / 500
Urine, Voided 200 / 200
Vital Signs
Temp Pulse Resp BP Pulse Ox
97.8 F 66 19 165/85 98
11/11/23 07:41 11/11/23 07:41 11/11/23 07:41 11/11/23 07:41 11/11/23 07:41
Lab Results
11/11/23 06:47
11/11/23 06:47
Calcium 8.6 mg/dl (8.4-10.2) D 11/11/23 06:47
Magnesium 2.0 mg/dl (1.6-2.3) 11/10/23 04:32
Total Bilirubin 1.0 mg/dl (0.2-1.3) 11/09/23 09:39
AST 34 U/L (17-59) 11/09/23 09:39
ALT 20 U/L (0-50) 11/09/23 09:39
Alkaline Phosphatase 95 U/L (38-126) 11/09/23 09:39
Total Protein 7.5 g/dl (6.3-8.2) 11/09/23 09:39
Albumin 4.8 g/dl (3.5-5.0) 11/09/23 09:39
Physical Exam
-
General: Well Nourished, No Apparent Distress and Comfortable; Negative Pain
Respiratory: Clear to Auscultation and Non Labored Respirations; Negative Wheezes, Rales, Rhonchi or Accessory Resp Muscle Use
Cardiac: Regular Rhythm and S1/S2; Negative Murmur, Rub, JVD or Gallop
NAD
ABD soft, nd
Incisions with intact dressing, shadowing on midline dressing (aquacel), NGT low outputs (bilious) reinforced with bandage to keep in place
Brar with clear, yellow urine
[2023-11-11 12:22] LABS: % Basophils 0.3 % (0-2); % Eosinophils 0.1 % (0-6); % Immature Granulocytes 2.3 % (0-0.5); % Lymphocytes 6.4 % (20.5-51.1); % Neutrophils 86.9 % (42.2-75.2); Absolute Basophils 0.1 10^3/uL (0-0.2); Absolute Immature Granulocytes 0.3 10^3/uL (0-0.05); Absolute Lymphocytes 0.9 10^3/uL (1.2-3.4); Absolute Monocytes 0.6 10^3/uL (0.1-0.6); Absolute Neutrophils 12.7 10^3/uL (1.4-6.5); Nucleated Red Blood Cells % 0 % (-)
--- NOTE | 2023-11-11 14:55 | PTCARENOTE ---
Telephone report given to Reina/OR @14:45, transport arrived @14:55; IVF & NGT clamped.
--- NOTE | 2023-11-11 15:10 | CM ---
Wound care saw pt . Stoma placement marked.
For surgery today.
NG maintained
When asked pt is unsure of what he wants as dc plan.
PLAn Dc Planning ongoing
--- NOTE | 2023-11-11 18:20 | W.IMMPOSTOP ---
Surgical Immed Post Op Note
-
Primary Surgeon: Derek Boone MD
Assisting Surgeon: Willis Ricketts MD
Assistants: LUIS MANUEL Mcduffie
Pre-op Diagnosis: Diverticulitis
Post-op Diagnosis: Same
Procedure Performed:
1. Planned exploratory laparotomy
2. Partial colectomy with colorectal anastomosis
3. Takedown of splenic flexure
4. Flexible sigmoidoscopy
Anesthesia Type: General
Specimen / Cultures: Sigmoid colon
Estimated Blood Loss: 23 cc
Complications: None
Operative Findings: Healthy appearing descending colon as well as rectal stump, the descending colon was mobilized but required additional length to reach the pelvis so the splenic flexure was carefully taken down. We did get into the left lateral
sidewall briefly, and there was a small superficial bleed from the pancreas that stopped with cautery and Joby. An end to end colorectal anastomosis was fashioned with a 28 EEA stapler. The anterior portion of the anastomosis was oversewn with
interrupted 3-0 Vicryl's. A flexible sigmoidoscopy was performed and confirmed an intact anastomosis. Leak test was negative. His previous drain was replaced, across the pelvis and up the left colic gutter.
POST OP PLAN:
Imaging: None
Labs: Routine AM
Diet: N.p.o., except meds. NG tube to low intermittent wall suction, anticipate ileus.
Analgesia: Tylenol 650mg q6 Joe, Dilaudid 0.5mg q2h PRN
Neuro/vascular checks: q4h
AC/AP: Hold Therapeutic AC, Ok for DVT PPx
Activity: Ad Mounika
Wound/Incisions/Drains: Routine, ANGEL to bulb suction.
Abx: Continue antibiotics x 4 days
Dispo: RNF
[2023-11-11] MEDS: DILAUDID 0.5 MG IV (18:43)
--- NOTE | 2023-11-11 23:12 | PTCARENOTE ---
19:43 pt rec'vd from PACU, alert, abd binder in place, denied pain. L nare NG tube to low inter suction, J-P RLQ intact and cheney with law urine. IVF infusing at 100ml/h via L f/a. and daughter at the bedside.
[2023-11-12 02:50] VITALS: BP 123/59
[2023-11-12] MEDS: TORADOL 10 MG IV (03:21)
[2023-11-12] MEDS: ZOSYN 50 IV ×3 (06:04→17:18)
[2023-11-12 06:30] LABS: Hematocrit 32.9 % (39.0-52.0); Hemoglobin 10.8 g/dL (13.0-18.0); Mean Corp Hgb Conc. 32.8 g/dL (33.0-37.0); Mean Corpuscular Hgb 31.8 pg (27.0-31.0); Mean Corpuscular Volume 96.8 fL (80.0-94.0); Mean Platelet Volume 12.3 fL (7.4-10.4); Platelet Count 112 10^3/uL (130-400); Red Cell Dist. Width 14.2 % (11.5-14.5); White Blood Cell Count 9.9 10^3/uL (4.8-10.8)
[2023-11-12 06:47] LABS: Blood Urea Nitrogen 27 mg/dl (9-20); Calcium 7.7 mg/dl (8.4-10.2); Carbon Dioxide 24 mmol/L (22-30); Chloride 105 mmol/L (98-107); Estimated Creatinine Clearance 52 ml/min; Glucose 105 mg/dl (70-99); Potassium 4.5 mmol/L (3.5-5.1); Sodium 144 mmol/L (135-145); eGFR > 60.00
[2023-11-12 06:54] VITALS: BMI 28.2
[2023-11-12 07:15] VITALS: BP 147/70
[2023-11-12 07:27] LABS: % Basophils 0.3 % (0-2); % Immature Granulocytes 1.7 % (0-0.5); % Lymphocytes 5.4 % (20.5-51.1); % Monocytes 4.7 % (1.7-9.3); % Neutrophils 87.9 % (42.2-75.2); Absolute Immature Granulocytes 0.2 10^3/uL (0-0.05); Absolute Lymphocytes 0.5 10^3/uL (1.2-3.4); Absolute Monocytes 0.5 10^3/uL (0.1-0.6); Absolute Neutrophils 8.7 10^3/uL (1.4-6.5); Nucleated Red Blood Cells % 0 % (-)
--- NOTE | 2023-11-12 08:12 | W.PN.GS2 ---
Addendum entered and electronically signed by Renny Guzman MD 11/12/23 12:27:
Patient seen and examined.
No major complaints. No nausea or vomiting. Reports passing some mild flatus, no BM. No fevers or chills. Pain overall well-controlled. Ambulating.
Gen: NAD
HEENT: currently clamped for a walk
Abd: soft, mild tenderness, mild distension, non-peritoneal, midline dressing with some shadowing, ANGEL serosang
Patient is a 78 yo M POD# 3/1 s/p laparoscopic converted to open sigmoidectomy, left in discontinuity, s/p open colorectal anastomosis
AVSS, leukocytosis has resolved
Mild acute anemia present likely d/t hemodilution with volume resuscitation, minimal intraop blood loss and no evidence of active bleeding (Hb stable)
Recovering well overall. No major postoperative concerns.
-- NPO, IVF, intermittent NGT clamps for ambulation consider removal tomorrow
-- Pain control: IV Tylenol, Toradol, Dilaudid PRN
-- Abx: Zosyn, plan for 4 days from most recent operation
-- Brar, plan for DC on POD2
-- DVT: Lovenox
-- GI: Protonix with NGt in place
Original Note:
Today's Communication / Plan
-
Patient to continue building up strength by ambulation. Continue monitoring for return of bowel function. Patient's NGT can be removed tomorrow if he is stable.
Assessment / Plan
-
Assessment:
78 yo male who presented with acute perforated sigmoid diverticulitis now POD #1 after partial colectomy with colorectal anastomosis.
Plan:
Afebrile since surgery, tachycardia resolved. VSS
Leukocytosis has resolved
Mild acute anemia present likely d/t hemodilution with volume resuscitation, minimal intraop blood loss and no evidence of active bleeding (Hb stable)
Post partial colectomy with colorectal anastomosis
--Continue strict NPO with NGT to LIWS, Ileus anticipated, continue ambulation to help bring back bowel function
--Continue Brar
--Continue IVF (100mL/hr)
--C/W ANGEL to bulb suction
--C/W ABX: OR cx sent and pending, continue for 4 days
--Continue analgesics/antiemetics as needed (Toradol, Tylenol 1000mg IV q6 Joe, Dilaudid PRN, Morphine)'
--Continue IV Protonix
--Neuro/vascular checks: q4H
--Possibly remove NGT tomorrow if patient remains stable
Dispo: RNF
DVT prophylaxis: Lovenox
Subjective Data
-
Date of Service: November 12, 2023
Patient is in good spirits after having his procedure. Says he has been feeling mild gas and some bowel movement. Reports no adverse overnight events, only reporting dull pain over incision sites and patient has been ambulating well.
Objective Data
-
Intake and Output
11/11/23 11/12/23 11/13/23
06:59 06:59 06:59
Intake Total 1700 / 1700 2400 / 2400
Output Total 635 / 1235 3650 / 3650
Balance 1065 / 465 -1250 / -1250
Intake:
IV fluids (Total) 1200 / 1200 2100 / 2100
Normosal 100 / 100
IV piggybacks 350 / 350 150 / 150
Amount instilled into GI Tube ( 150 / 150 150 / 150
Total)
[place] Sump 150 / 150 150 / 150
Output:
Drain Output (Total) 35 / 35 400 / 400
Right Lower Abdomen Varinder- 35 / 35 400 / 400
Carter
Gastrointestinal tube output ( 250 / 850 1200 / 1200
Total)
[place] Sump 250 / 850 1200 / 1200
Urine, Brar 350 / 350 2049 / 2049
Vital Signs
Temp Pulse Resp BP Pulse Ox
97.8 F 68 18 147/70 98
11/12/23 07:15 11/12/23 07:15 11/12/23 07:15 11/12/23 07:15 11/12/23 07:15
Lab Results
11/12/23 04:33
11/12/23 04:33
Calcium 7.7 mg/dl (8.4-10.2) L 11/12/23 04:33
Magnesium 2.0 mg/dl (1.6-2.3) 11/10/23 04:32
Total Bilirubin 1.0 mg/dl (0.2-1.3) 11/09/23 09:39
AST 34 U/L (17-59) 11/09/23 09:39
ALT 20 U/L (0-50) 11/09/23 09:39
Alkaline Phosphatase 95 U/L (38-126) 11/09/23 09:39
Total Protein 7.5 g/dl (6.3-8.2) 11/09/23 09:39
Albumin 4.8 g/dl (3.5-5.0) 11/09/23 09:39
Physical Exam
-
General: No Apparent Distress and Comfortable; Negative Pain
Respiratory: Clear to Auscultation and Non Labored Respirations; Negative Wheezes, Rales, Rhonchi or Accessory Resp Muscle Use
Cardiac: Regular Rhythm and S1/S2; Negative Murmur, Rub, JVD or Gallop
NAD
ABD soft, nd
Incisions with intact dressing, shadowing on midline dressing (aquacel), NGT low outputs reinforced with bandage to keep in place
Brar with clear, yellow urine
[2023-11-12] MEDS: PROTONIX IV 40 MG IV (08:39)
[2023-11-12] MEDS: NSS (PRESERVATIVE FREE) 10 ML IV (08:39)
[2023-11-12] MEDS: OFIRMEV 100 IV ×3 (09:31→21:11)
--- NOTE | 2023-11-12 10:29 | CM ---
Pt postop lap colectomy.
Pt is Npo with NG tube.
Requested PT OT natacha from .
Will continue to assist and assess dc plan.
PLAN Discharge plan ongoing.
[2023-11-12 11:10] VITALS: BP 153/73
--- NOTE | 2023-11-12 11:18 | PN.CDI ---
CDI
- -
CDI:
Physician Documentation Request
Admit Date: 11/09/23 13:48
Dear Doctor Paolo,
Please review the following and provide your response in the progress notes.
Clinical Indicators:
- 11/08 Post Op Note 'diverticulitis with stool and pus primarily confined to the pelvis'
- 11/09 Gen Surg 'Leukocytosis present in setting of acute infection'
- 11/10 PN 'Severe Sepsis POA (Fever, leukocytosis, lactic acidosis)...diverticulitis with perforated diverticulum'
- IVF and IV abx Zosyn
- Wound culture with E coli and Pseudomonas
Please clarify the diagnosis with the above findings
Peritonitis
Stool and pus in pelvis only
Other
Use of terms such as suspected, likely, concern for, or probable (associated with a specific diagnosis that is being evaluated, monitored, or treated as if it exists) are acceptable and can be coded in the inpatient setting, when documented at the
time of discharge.
Thank you,
Ina Garrett RN
CDI Specialist
Please use your independent medical judgment in providing your response.
[2023-11-12 11:27] VITALS: BMI 28.2
--- NOTE | 2023-11-12 14:51 | W.PN.HOSP.TC ---
Today's Communication/Plan
-
continue IV Abx
NPO/IVF/NGT - follow GS recs
Assessment / Plan
Assessment / Plan
Assessment:
Severe Sepsis POA (Fever, leukocytosis, lactic acidosis)
Acute complicated diverticulitis with perforated diverticulum
- CT A/P with IV contrast showed large focal perforation of the mid sigmoid colon with acute diverticulitis
- s/p Laparoscopic, converted to open sigmoid colectomy 11/08
- s/p ex-lap partial colectomy with colorectal anastomosis 11/10
- continue Zosyn, day 1 post-recent OR (total day 4)
- continue IVF
- continue NPO status
- continue NGT to LIWS
- GS following
Acute anemia/thrombocytopenia
- likely from acute illness, sepsis, post-op
- monitor daily counts and follow for transfusion needs
Hypocalcemia
- s/p 2 gram CaCl, with improvement
- trend BMP
Abnormal UA
- Ucx without growth
Essential Hypertension
- holding home meds, lisinopril and hydrochlorothiazide in setting of sepsis
GERD/Giles's esophagus
- continue IV PPI
DVT ppx: SCDs
Code: Full
Anticipated Discharge: > 48 hours
Subjective/Interval History
-
Date of Service: November 12, 2023
remains with NGT, pain controlled
Objective Data
-
Labs:
Laboratory Results
11/12/23
04:33
WBC 9.9
Hgb 10.8 L
Hct 32.9 L
Plt Count 112 L
Sodium 144
Potassium 4.5
Chloride 105
Carbon Dioxide 24
BUN 27 H
Creatinine 1.1
Glucose 105 H
Calcium 7.7 L
Vital Signs:
Vital Signs
Temp Pulse Resp BP Pulse Ox
98.2 F 69 18 153/73 98
11/12/23 11:10 11/12/23 11:10 11/12/23 11:10 11/12/23 11:10 11/12/23 11:10
I&O
11/11/23 11/12/23 11/13/23
06:59 06:59 06:59
Intake Total 1700 / 1700 2400 / 2400
Output Total 635 / 1235 3650 / 3650
Balance 1065 / 465 -1250 / -1250
Physical Exam
-
General: No Apparent Distress
HEENT: Normocephalic, Atraumatic and Other (NGT)
Respiratory: Negative Wheezes
Cardiac: Regular Rhythm and S1/S2
GI: Soft
Genito-urinary: No Costovertebral Tender
Neuro: AO x 3
Hematologic / Lymphatic: No Lymphadenopathy
Psych: Calm
Data Reviewed
-
Total Time Spent with Patient (in minutes): 45
Labs: Labs Reviewed by me
[2023-11-12 15:10] VITALS: BP 155/81
[2023-11-12] MEDS: NSS 1000 IV (15:37)
--- NOTE | 2023-11-12 16:03 | PTCARENOTE ---
pt with increased red tinged drainage from NGT. Dr Guzman made aware. Will continue to monitor.
[2023-11-12] MEDS: LOVENOX 40 MG SC (17:18)
[2023-11-12 19:20] VITALS: BP 164/82
[2023-11-12] MEDS: NSS IV (19:33)
[2023-11-12 23:14] VITALS: BP 144/80
[2023-11-13] MEDS: ZOSYN 50 IV ×4 (00:31→18:02)
[2023-11-13] MEDS: TORADOL 10 MG IV (00:37)
[2023-11-13] MEDS: OFIRMEV 100 IV (03:03)
[2023-11-13] MEDS: NSS 1000 IV (03:03)
[2023-11-13 06:00] VITALS: BMI 28.0
[2023-11-13 07:45] VITALS: BP 164/85
[2023-11-13 07:54] LABS: Hematocrit 29.6 % (39.0-52.0); Mean Corp Hgb Conc. 33.8 g/dL (33.0-37.0); Mean Corpuscular Hgb 31.2 pg (27.0-31.0); Mean Corpuscular Volume 92.2 fL (80.0-94.0); Mean Platelet Volume 11.8 fL (7.4-10.4); Platelet Count 130 10^3/uL (130-400); Red Blood Cell Count 3.21 10^6/uL (4.70-6.10); Red Cell Dist. Width 14.2 % (11.5-14.5)
[2023-11-13 08:01] LABS: Blood Urea Nitrogen 18 mg/dl (9-20); Carbon Dioxide 22 mmol/L (22-30); Chloride 107 mmol/L (98-107); Estimated Creatinine Clearance 63 ml/min; Glucose 81 mg/dl (70-99); Potassium 3.5 mmol/L (3.5-5.1); Sodium 143 mmol/L (135-145); eGFR > 60.00
[2023-11-13] MEDS: PROTONIX IV 40 MG IV (08:54)
[2023-11-13] MEDS: NSS (PRESERVATIVE FREE) 10 ML IV (08:55)
--- NOTE | 2023-11-13 09:18 | W.PN.HOSP.TC ---
Today's Communication/Plan
-
clears
continue IV abx
Assessment / Plan
Assessment / Plan
Assessment:
Severe Sepsis POA (Fever, leukocytosis, lactic acidosis)
Acute complicated diverticulitis with perforated diverticulum
- CT A/P with IV contrast showed large focal perforation of the mid sigmoid colon with acute diverticulitis
- s/p Laparoscopic, converted to open sigmoid colectomy 11/08
- s/p ex-lap partial colectomy with colorectal anastomosis 11/10
- continue Zosyn, day 2 post-recent OR (total day 5)
- NGT remove and Brar removed 11/12
- clear liquids per GS
- GS following
Acute anemia/thrombocytopenia
- likely from acute illness, sepsis, post-op
- Counts are improving, continue to monitor
Hypocalcemia
- s/p 2 gram CaCl, with improvement
- trend BMP
Abnormal UA
- Ucx without growth
Essential Hypertension
- resume lisinopril and hydrochlorothiazide
GERD/Giles's esophagus
- continue IV PPI; switch to PO tomorrow
DVT ppx: SCDs
Code: Full
Anticipated Discharge: 24 - 48 hours
Subjective/Interval History
-
Date of Service: November 13, 2023
NGT removed, Brar removed and patient voiding
Objective Data
-
Labs:
Laboratory Results
11/13/23
06:49
WBC 8.0
Hgb 10.0 L
Hct 29.6 L
Plt Count 130
Sodium 143
Potassium 3.5
Chloride 107
Carbon Dioxide 22
BUN 18
Creatinine 0.9
Glucose 81
Calcium 8.0 L
Vital Signs:
Vital Signs
Temp Pulse Resp BP Pulse Ox
97.8 F 56 18 164/85 97
11/13/23 07:45 11/13/23 07:45 11/13/23 07:45 11/13/23 07:45 11/13/23 07:45
I&O
11/12/23 11/13/23 11/14/23
06:59 06:59 06:59
Intake Total 2400 / 2400 1730 / 1730
Output Total 3650 / 3650 2435 / 2435 275 / 275
Balance -1250 / -1250 -705 / -705 -275 / -275
Physical Exam
-
General: No Apparent Distress
HEENT: Normocephalic and Atraumatic
Respiratory: Clear to Auscultation; Negative Wheezes or Rales
Cardiac: Regular Rhythm and S1/S2
GI: Soft
Genito-urinary: No Costovertebral Tender
Neuro: AO x 3
Psych: Calm
Data Reviewed
-
Total Time Spent with Patient (in minutes): 42
Labs: Labs Reviewed by me
--- NOTE | 2023-11-13 10:20 | W.PN.GS2 ---
Addendum entered and electronically signed by Derek Boone MD 11/13/23 13:02:
I saw and examined the patient independently.
The resident's note was reviewed and I agree with the note, assessment and plan except where noted below.
Comment: 78-year-old male postoperative day 4/2 laparoscopic converted to open sigmoidectomy with planned takeback and colorectal anastomosis. Doing well, expected postoperative course.
Patient endorsing return of bowel function, exam reassuring. NG tube removed and will start on clear liquid diet.
Brar removed, trial of void today.
Continue ANGEL to bulb suction, anticipate removing this tomorrow
Continue antibiotics, will plan for a 7-day postop course.
DVT prophylaxis, SCDs, out of bed and ambulate as able.
Original Note:
Today's Communication / Plan
-
Patient advanced diet to clear liquid after removal of NGT. Continue monitoring for progress and return of normal bowel function. Patient safe to be discharged once he can tolerate diet.
Assessment / Plan
-
Assessment:
78 yo male who presented with acute perforated sigmoid diverticulitis, POD#4/2 s/p laparoscopic converted to open sigmoidectomy, left in discontinuity, s/p open partial colectomy with colorectal anastomosis.
Plan:
Afebrile since surgery, tachycardia resolved. VSS
Leukocytosis has resolved
Mild acute anemia present likely d/t hemodilution with volume resuscitation, minimal intraop blood loss and no evidence of active bleeding (Hb stable)
Post partial colectomy with colorectal anastomosis
--NGT removed, advance diet to clear liquid as tolerated
--Brar Removed
--IVF discontinued
--C/W ANGEL to bulb suction
--C/W ABX: OR cx sent, showed E. Coli and Pseudomonas, continue for 3 days
--Continue analgesics/antiemetics as needed (Toradol, Morphine)
--Continue PO Protonix
Dispo: RNF
DVT prophylaxis: Lovenox
Subjective Data
-
Date of Service: November 13, 2023
Patient has been feeling well, notes no adverse overnight events. Patient has been able to pass some mild flatus, and has had some mild bowel movements. Patient reports no fevers, chills, nausea, or vomiting. His pain has been overall
well-controlled with him stating he only has a dull pain around the incision site. Patient has been ambulating and was feeling well enough to have his NG tube and Brar removed today.
Objective Data
-
Intake and Output
11/12/23 11/13/23 11/14/23
06:59 06:59 06:59
Intake Total 2400 / 2400 1730 / 1730
Output Total 3650 / 3650 2435 / 2435 275 / 275
Balance -1250 / -1250 -705 / -705 -275 / -275
Intake:
IV fluids (Total) 2100 / 2100 1200 / 1200
Normosal 100 / 100
IV piggybacks 150 / 150 350 / 350
Amount instilled into GI Tube ( 150 / 150 180 / 180
Total)
[place] Sump 150 / 150 180 / 180
Output:
Drain Output (Total) 400 / 400 145 / 145
Right Lower Abdomen Varinder- 400 / 400 145 / 145
Carter
Gastrointestinal tube output ( 1200 / 1200 640 / 640
Total)
[place] Sump 1200 / 1200 640 / 640
Urine, Brar 2049 / 2049 1650 / 1650
Urine, Voided 275 / 275
Vital Signs
Temp Pulse Resp BP Pulse Ox
97.8 F 56 18 164/85 97
11/13/23 07:45 11/13/23 07:45 11/13/23 07:45 11/13/23 07:45 11/13/23 07:45
Lab Results
11/13/23 06:49
11/13/23 06:49
Calcium 8.0 mg/dl (8.4-10.2) L 11/13/23 06:49
Magnesium 2.0 mg/dl (1.6-2.3) 11/10/23 04:32
Total Bilirubin 1.0 mg/dl (0.2-1.3) 11/09/23 09:39
AST 34 U/L (17-59) 11/09/23 09:39
ALT 20 U/L (0-50) 11/09/23 09:39
Alkaline Phosphatase 95 U/L (38-126) 11/09/23 09:39
Total Protein 7.5 g/dl (6.3-8.2) 11/09/23 09:39
Albumin 4.8 g/dl (3.5-5.0) 11/09/23 09:39
Physical Exam
-
Gen: NAD
HEENT: NG tube removed, patient tolerating well
Abd: soft, mild tenderness, mild distension, non-peritoneal, midline dressing with some shadowing, ANGEL serosang
: Brar removed
[2023-11-13 11:06] LABS: % Basophils 0.4 % (0-2); % Eosinophils 0.3 % (0-6); % Lymphocytes 13.6 % (20.5-51.1); % Monocytes 6.3 % (1.7-9.3); Absolute Immature Granulocytes 0.2 10^3/uL (0-0.05); Absolute Lymphocytes 1.1 10^3/uL (1.2-3.4); Absolute Monocytes 0.5 10^3/uL (0.1-0.6); Absolute Neutrophils 6.1 10^3/uL (1.4-6.5); Nucleated Red Blood Cells % 0 % (-)
[2023-11-13] MEDS: ZESTRIL 20 MG PO (11:42)
[2023-11-13] MEDS: ORETIC 12.5 MG PO (11:42)
[2023-11-13 15:58] VITALS: BP 151/81
[2023-11-13] MEDS: LOVENOX 40 MG SC (18:01)
[2023-11-13] MEDS: FLUSH (NSS) 2 FLUSH IV (18:05)
[2023-11-14] MEDS: ZOSYN 50 IV ×5 (00:09→23:26)
[2023-11-14 07:52] VITALS: BP 178/86
[2023-11-14] MEDS: ZESTRIL 20 MG PO (08:25)
[2023-11-14] MEDS: ORETIC 12.5 MG PO (08:25)
[2023-11-14] MEDS: LIPITOR 20 MG PO (08:25)
[2023-11-14] MEDS: PROTONIX 40 MG PO (08:25)
[2023-11-14 08:26] LABS: % Basophils 0.6 % (0-2); % Eosinophils 1.1 % (0-6); % Immature Granulocytes 3.4 % (0-0.5); % Lymphocytes 15.7 % (20.5-51.1); % Monocytes 7.5 % (1.7-9.3); % Neutrophils 71.7 % (42.2-75.2); Absolute Eosinophils 0.1 10^3/uL (0-0.7); Absolute Immature Granulocytes 0.2 10^3/uL (0-0.05); Absolute Monocytes 0.5 10^3/uL (0.1-0.6); Absolute Neutrophils 4.6 10^3/uL (1.4-6.5); Hematocrit 30.9 % (39.0-52.0); Hemoglobin 10.5 g/dL (13.0-18.0); Mean Corpuscular Volume 91.2 fL (80.0-94.0); Nucleated Red Blood Cells % 0 % (-); Red Blood Cell Count 3.39 10^6/uL (4.70-6.10); Red Cell Dist. Width 13.7 % (11.5-14.5); White Blood Cell Count 6.4 10^3/uL (4.8-10.8)
[2023-11-14 09:06] LABS: Mean Platelet Volume 11.4 fL (7.4-10.4); Platelet Count 145 10^3/uL (130-400)
[2023-11-14 09:18] LABS: Blood Urea Nitrogen 12 mg/dl (9-20); Calcium 8.5 mg/dl (8.4-10.2); Carbon Dioxide 27 mmol/L (22-30); Chloride 103 mmol/L (98-107); Estimated Creatinine Clearance 63 ml/min; Glucose 87 mg/dl (70-99); Potassium 3.2 mmol/L (3.5-5.1); Sodium 139 mmol/L (135-145); eGFR > 60.00
--- NOTE | 2023-11-14 10:15 | PTCARENOTE ---
@ 1000=Right lower abd ANGEL drain with significant drainage around site. dressing changed at bedside by Dr Jacobson. ANGEL drainage emptied at this time-60ml output.
--- NOTE | 2023-11-14 10:50 | W.PN.GS2 ---
Today's Communication / Plan
-
Adv to LRD
Hold lovenox and toradol in light of bloody drain output
SCDs for DVT ppx
Trend Hb
Monitor HR/BP for signs of blood loss
Assessment / Plan
-
Assessment:
78 yo male who presented with acute perforated sigmoid diverticulitis, POD#4/2 s/p laparoscopic converted to open sigmoidectomy, left in discontinuity, s/p open partial colectomy with colorectal anastomosis.
Plan:
Afebrile since surgery, tachycardia resolved. VSS
Leukocytosis has resolved
Mild acute anemia present likely d/t hemodilution with volume resuscitation, minimal intraop blood loss and no evidence of active bleeding (Hb trended up)
Drain with bloody output, 110cc past 24 hrs + 50cc this am
Post partial colectomy with colorectal anastomosis
--Advance diet to LRD
--C/W ANGEL to bulb suction, trend Hb, monitor vitals for signs of blood loss
--C/W ABX: OR cx sent, showed E. Coli and Pseudomonas, continue for 2 more days
--Continue analgesics/antiemetics as needed (Toradol, Morphine)
--Continue PO Protonix
Dispo: RNF
DVT prophylaxis: Hold lovenox, SCDs only today
Subjective Data
-
Date of Service: November 14, 2023
AFVSS, ambulating, voiding, forrest CLD, denies pain, only c/o is leaky smith drain
Objective Data
-
Intake and Output
11/13/23 11/14/23 11/15/23
06:59 06:59 06:59
Intake Total 1730 / 1730 1180 / 1180
Output Total 2435 / 2435 1285 / 1285 50 / 50
Balance -705 / -705 -105 / -105 -50 / -50
Intake:
Oral fluids 180 / 180
IV fluids (Total) 1200 / 1200 800 / 800
IV piggybacks 350 / 350 200 / 200
Amount instilled into GI Tube ( 180 / 180
Total)
[place] Sump 180 / 180
Output:
Drain Output (Total) 145 / 145 110 / 110 50 / 50
Right Lower Abdomen Varinder- 145 / 145 110 / 110 50 / 50
Carter
Gastrointestinal tube output ( 640 / 640
Total)
[place] Sump 640 / 640
Urine, Brar 1650 / 1650
Urine, Voided 1175 / 1175
Other:
Number of approximated MODERATE 4
amounts of urine
Number of approximated LARGE 1
amounts of urine
Vital Signs
Temp Pulse Resp BP Pulse Ox
99.1 F 63 18 178/86 97
11/14/23 07:52 11/14/23 08:25 11/14/23 07:52 11/14/23 08:25 11/14/23 07:52
Lab Results
11/14/23 07:34
11/14/23 07:34
Calcium 8.5 mg/dl (8.4-10.2) 11/14/23 07:34
Magnesium 2.0 mg/dl (1.6-2.3) 11/10/23 04:32
Total Bilirubin 1.0 mg/dl (0.2-1.3) 11/09/23 09:39
AST 34 U/L (17-59) 11/09/23 09:39
ALT 20 U/L (0-50) 11/09/23 09:39
Alkaline Phosphatase 95 U/L (38-126) 11/09/23 09:39
Total Protein 7.5 g/dl (6.3-8.2) 11/09/23 09:39
Albumin 4.8 g/dl (3.5-5.0) 11/09/23 09:39
Physical Exam
-
Gen: NAD
Abd: soft, nt, incisions OK, drain with sanguinous output and bloody saturation of drain dressings
--- NOTE | 2023-11-14 11:30 | PTCARENOTE ---
Right ANGEL drain dressing saturated at this time. tiger text to Dr Jacobson. drain output 20 ml. will observe.
[2023-11-14 11:48] VITALS: BP 163/96
[2023-11-14] MEDS: FLUSH (NSS) 2 FLUSH IV (12:16)
--- NOTE | 2023-11-14 12:26 | PTOTSP ---
The patient no longer has an NG tube and has been ambulating independently, denies issues with mobility. Encouraged the patient to continue ambulating while here to increase activity level. No further PT needs, will sign off.
[2023-11-14 13:09] LABS: Hematocrit 30.4 % (39.0-52.0); Hemoglobin 10.6 g/dL (13.0-18.0); Mean Corp Hgb Conc. 34.9 g/dL (33.0-37.0); Mean Corpuscular Hgb 31.7 pg (27.0-31.0); Mean Platelet Volume 10.3 fL (7.4-10.4); Platelet Count 151 10^3/uL (130-400); Red Blood Cell Count 3.34 10^6/uL (4.70-6.10); Red Cell Dist. Width 13.9 % (11.5-14.5); White Blood Cell Count 6.5 10^3/uL (4.8-10.8)
--- NOTE | 2023-11-14 13:23 | W.PN.HOSP.TC ---
Today's Communication/Plan
-
GS to evaluate bloody output around drain
continue LRD, IV Abx
Assessment / Plan
Assessment / Plan
Assessment:
Severe Sepsis POA (Fever, leukocytosis, lactic acidosis)
Acute complicated diverticulitis with perforated diverticulum
- CT A/P with IV contrast showed large focal perforation of the mid sigmoid colon with acute diverticulitis
- s/p Laparoscopic, converted to open sigmoid colectomy 11/08
- s/p ex-lap partial colectomy with colorectal anastomosis 11/10
- continue Zosyn, day 3 post-recent OR (total day 6)
- NGT remove and Brar removed 11/12
- placed on LRD
- GS following
Acute anemia/thrombocytopenia
- likely from acute illness, sepsis, post-op
- Counts are improving, continue to monitor
Hypocalcemia
- s/p 2 gram CaCl, with improvement
- trend BMP
Abnormal UA
- Ucx without growth
Essential Hypertension
- resume lisinopril and hydrochlorothiazide
GERD/Giles's esophagus
- continue PPI
DVT ppx: SCDs
Code: Full
Anticipated Discharge: 24 - 48 hours
Subjective/Interval History
-
Date of Service: November 14, 2023
bloody output around abdomen drain, multiple gauze saturations
Objective Data
-
Labs:
Laboratory Results
11/14/23 11/14/23
07:34 12:56
WBC 6.4 6.5
Hgb 10.5 L 10.6 L
Hct 30.9 L 30.4 L
Plt Count 145 151
Sodium 139
Potassium 3.2 L
Chloride 103
Carbon Dioxide 27
BUN 12
Creatinine 0.9
Glucose 87
Calcium 8.5
Vital Signs:
Vital Signs
Temp Pulse Resp BP Pulse Ox
98.5 F 77 18 163/96 97
11/14/23 11:48 11/14/23 11:48 11/14/23 11:48 11/14/23 11:48 11/14/23 11:48
I&O
11/13/23 11/14/23 11/15/23
06:59 06:59 06:59
Intake Total 1730 / 1730 1180 / 1180
Output Total 2435 / 2435 1285 / 1285 70 / 70
Balance -705 / -705 -105 / -105 -70 / -70
Physical Exam
-
General: No Apparent Distress
HEENT: Normocephalic and Atraumatic
Respiratory: Negative Wheezes
Cardiac: Regular Rhythm and S1/S2
GI: Soft and Other (abdominal drain, bloody output around drain site)
Genito-urinary: No Costovertebral Tender
Neuro: AO x 3
Psych: Calm
Data Reviewed
-
Total Time Spent with Patient (in minutes): 45
Labs: Labs Reviewed by me
--- NOTE | 2023-11-14 13:30 | PTCARENOTE ---
Right ANGEL dressing saturated at this time. drain output is [address] Jacobson notified via tiger text. dressing changed and new abdominal binder ordered due to drainage.
--- NOTE | 2023-11-14 15:25 | CM ---
Chart reviewed: general surgery to evaluate drain output; IV ABX continued
Anticipated discharge is 24-48 hours
CM will continue to monitor for discharge planning needs
[2023-11-14 15:41] VITALS: BP 141/81
--- NOTE | 2023-11-14 16:59 | W.PN.UPDATE ---
Update Note
Progress Note Update
This is a 78-year-old male who presented with acute perforated sigmoid diverticulitis and peritonitis now postoperative day 5/3 from a laparoscopic converted to open sigmoidectomy, left in discontinuity/open partial colectomy with colorectal
anastomosis. Overall clinically improving however is noted to have some bleeding around his ANGEL drain of unclear etiology. He is clinically stable and hemoglobin is stable on multiple rechecks.
My concern at this point is potential injury to the inferior epigastrics. Will obtain a CTA abdomen/pelvis to assess for the proximity of the drain to the vessels and any potential ongoing bleeding. I explained if there is indeed an injury to the
epigastrics, will likely need IR consult for colonization of the vessels.
--- NOTE | 2023-11-14 17:00 | PTCARENOTE ---
Right ANGEL drain dressing saturated. minimal output in ANGEL bulb. Dr Boone notified and to see pt. new 4x4 dressing placed and covered by ABD pad. new abdominal binder placed. pt transferred to CT scan via stretcher and returned without incident.
TXA given IV per MAY.
[2023-11-14] MEDS: TRANEXAMIC ACID 110 MG IV (17:15)
--- NOTE | 2023-11-14 19:00 | PTCARENOTE ---
per Dr Boone- ANGEL bulb suction released. drain left uncompressed. drain dressing remains dry and intact. will observe.
--- NOTE | 2023-11-14 19:48 | PTCARENOTE ---
Right ANGEL drain dressing saturated at this time. tiger text to Dr Jacobson. drain output 20 ml. will observe.
[2023-11-14 23:00] VITALS: BP 138/70
[2023-11-15] MEDS: ZOSYN 50 IV ×4 (05:10→23:40)
[2023-11-15 06:00] VITALS: BMI 25.8
[2023-11-15 06:37] LABS: % Basophils 0.4 % (0-2); % Eosinophils 1.3 % (0-6); % Immature Granulocytes 2.6 % (0-0.5); % Lymphocytes 25.7 % (20.5-51.1); Absolute Eosinophils 0.1 10^3/uL (0-0.7); Absolute Immature Granulocytes 0.1 10^3/uL (0-0.05); Absolute Lymphocytes 1.4 10^3/uL (1.2-3.4); Absolute Monocytes 0.4 10^3/uL (0.1-0.6); Absolute Neutrophils 3.4 10^3/uL (1.4-6.5); Hematocrit 31.6 % (39.0-52.0); Mean Corp Hgb Conc. 34.8 g/dL (33.0-37.0); Mean Corpuscular Hgb 31.3 pg (27.0-31.0); Mean Platelet Volume 10.8 fL (7.4-10.4); Nucleated Red Blood Cells % 0 % (-); Platelet Count 163 10^3/uL (130-400); Red Blood Cell Count 3.51 10^6/uL (4.70-6.10); Red Cell Dist. Width 13.8 % (11.5-14.5); White Blood Cell Count 5.5 10^3/uL (4.8-10.8)
[2023-11-15 07:08] LABS: Blood Urea Nitrogen 14 mg/dl (9-20); Calcium 9.2 mg/dl (8.4-10.2); Carbon Dioxide 29 mmol/L (22-30); Chloride 101 mmol/L (98-107); Estimated Creatinine Clearance 57 ml/min; Glucose 106 mg/dl (70-99); Potassium 3.6 mmol/L (3.5-5.1); Sodium 139 mmol/L (135-145); eGFR > 60.00
[2023-11-15 07:10] VITALS: BP 146/87
[2023-11-15] MEDS: ZESTRIL 20 MG PO (08:08)
[2023-11-15] MEDS: ORETIC 12.5 MG PO (08:08)
[2023-11-15] MEDS: PROTONIX 40 MG PO (08:08)
[2023-11-15] MEDS: LIPITOR 20 MG PO (08:09)
--- NOTE | 2023-11-15 08:57 | W.PN.GS2 ---
Today's Communication / Plan
-
Drain removed. Will monitor for any ongoing bleeding.
If no bleeding, Lovenox tonight.
Anticipate discharge home tomorrow.
Assessment / Plan
-
Assessment:
78 yo male who presented with acute perforated sigmoid diverticulitis and peritonitis, POD#6 s/p laparoscopic converted to open sigmoidectomy, left in discontinuity now POD #4 open partial colectomy with colorectal anastomosis. Doing well, expected
postoperative course.
--Advance diet to LRD
--Will continue to monitor his drain site, if concern for hematoma will have IR evaluate him for possible embolization.
--If no concern for ongoing bleeding, will resume Lovenox tonight
--C/W ABX: OR cx sent, showed E. Coli and Pseudomonas, continue for 1 more day
--Continue analgesics/antiemetics as needed (Toradol, Morphine)
--Continue PO Protonix
Dispo: RNF
Time Spent
Total Time Spent with Patient (in minutes): 20
Subjective Data
-
Date of Service: November 15, 2023
Interval Events:
No acute events overnight. Slept well. Pain Controlled. Denies Nausea/Vomiting, +bowel function. Tolerating diet.
CTA overnight did confirm of the drain was through the right inferior epigastrics however no active extravasation. The bleeding has stopped since taking the bulb off suction and giving 1 g of TXA.
Objective Data
-
Intake and Output
11/14/23 11/15/23 11/16/23
06:59 06:59 06:59
Intake Total 1180 / 1180 960 / 960
Output Total 1285 / 1285 2130 / 2130 25 /
Balance -105 / -105 -1170 / -1170 -25 / -25
Intake:
Oral fluids 180 / 180 600 / 600
IV fluids (Total) 800 / 800 50 / 50
IV piggybacks 200 / 200 310 / 310
Output:
Drain Output (Total) 110 / 110 80 / 80
Right Lower Abdomen Varinder- 110 / 110 80 / 80
Carter
Urine, Voided 1175 / 1175 2049 / 2049
Other:
Number of approximated MODERATE 4 1
amounts of urine
Number of approximated LARGE 1 2
amounts of urine
Vital Signs
Temp Pulse Resp BP Pulse Ox
98.2 F 70 18 146/87 99
11/15/23 07:10 11/15/23 08:08 11/15/23 07:10 11/15/23 08:08 11/15/23 08:15
Lab Results
11/15/23 06:13
11/15/23 06:13
Calcium 9.2 mg/dl (8.4-10.2) 11/15/23 06:13
Magnesium 2.0 mg/dl (1.6-2.3) 11/10/23 04:32
Total Bilirubin 1.0 mg/dl (0.2-1.3) 11/09/23 09:39
AST 34 U/L (17-59) 11/09/23 09:39
ALT 20 U/L (0-50) 11/09/23 09:39
Alkaline Phosphatase 95 U/L (38-126) 11/09/23 09:39
Total Protein 7.5 g/dl (6.3-8.2) 11/09/23 09:39
Albumin 4.8 g/dl (3.5-5.0) 11/09/23 09:39
Physical Exam
-
GENERAL/NEURO: Awake, Alert, no distress
CHEST: Unlabored breathing on RA
ABDOMEN: Soft, Non-Tender, Non-Distended, ANGEL with minimal output, removed at bedside without issue. No active bleeding noted. Gauze followed by an abdominal binder placed.
--- NOTE | 2023-11-15 09:30 | OR.RPT ---
Operative Report
Operative Report
Patient Name: Antelmo Fox
: 1945
Date of Operation: 11/11/2023
Preoperative Diagnosis: Perforated sigmoid diverticulitis, bowel in discontinuity
Postoperative Diagnosis: Same
Procedure(s):
1. Planned takeback/second look exploratory laparotomy
2. Partial colectomy with colorectal anastomosis
3. Takedown of splenic flexure
4. Flexible sigmoidoscopy
Surgeon(s):
Dr. Boone
Sales Mgr(s):
Dr. Ricketts
LUIS MANUEL Paulino
Anesthesia: General
Estimated Blood Loss: 23 cc
Urine Output: See anesthesia records
Drains/Lines/Implants: None
Specimens: Sigmoid colon
Indication for surgery:
This is a 78-year-old male who presented to our hospital with perforated diverticulitis. He was taken to the OR urgently for laparoscopic converted to open sigmoidectomy and left in discontinuity with plan for second look laparotomy and possible
colorectal anastomosis versus diverting ostomy. Risks benefits and alternatives were discussed with the patient and the family after all questions were answered the patient agreed and consented for surgery.
Operative Findings: Healthy appearing descending colon as well as rectal stump, the descending colon was mobilized but required additional length to reach the pelvis so the splenic flexure was carefully taken down. We did get into the left lateral
sidewall briefly, and there was a small superficial bleed from the pancreas that stopped with cautery and Joby. An end to end colorectal anastomosis was fashioned with a 28 EEA stapler. The anterior portion of the anastomosis was oversewn with
interrupted 3-0 Vicryl's. A flexible sigmoidoscopy was performed and confirmed an intact anastomosis. Leak test was negative. His previous drain was replaced, across the pelvis and up the left colic gutter.
Details of the operation:
The patient was brought to the operating room and positioned supine on the operating table. General anesthesia was induced, followed by successful endotracheal intubation. The abdomen was prepped and draped in the usual fashion and a team timeout
was performed identifying the correct patient, procedure and that appropriate preoperative medications administered. Local anesthetic in the form of 0.25% Marcaine with epinephrine was used throughout the case.
The patient's prior midline laparotomy incision mercedes were removed carefully and passed off the field. The subcutaneous space was opened and the PDS sutures were identified and cut. The abdomen was entered safely. There was minimal fluid and no
pus identified. His previous drain was pulled out of the pelvis and looped around the abdominal wall and out of the way. The rectum and descending colon appeared viable. There was no residual diverticular disease. The descending colon certainly
did not look like it could reach the rectal stump so mobilization and takedown of the splenic flexure was going to be a necessary step if we were going to move forward with anastomosis which seemed safe given the minimal residual inflammation. His
midline incision was extended superiorly. The Bookwalter retractor was set up and we began by incising the left lateral white line of Toldt. We did initially get into the sidewall briefly but recognized this early and did not divide or injure any
critical structures. There was a little bit of oozing in the space which stopped with some Joby. We then got into the correct space over Gerota's fascia and medialized the mesentery of the left colon. We then began taking down the splenic
flexure from below coming around the flexure. We then transition to the transverse colon and entered the lesser sac safely. Staying along the superior aspect of the transverse colon we marched towards the spleen which was identified and preserved.
We met with our previous dissection laterally and began medializing the splenic flexure. The transverse mesocolon was also mobilized. There was a small superficial injury to the pancreas which stopped with a electrocautery and some Joby. The
duodenum and ligament of Treitz were identified and preserved. With the descending colon completely mobilized we then turned our attention to the rectal stump which appeared healthy. The descending colon staple line was incised and much of the air
in the colon as well as some liquid stool effluent was evacuated. The anvil of a 28 EEA stapler was inserted and the stump was ligated with a single fire of a JANNY 60 purple. This residual part of the colon was passed off as a specimen. The anvil
was then brought through the middle of the staple line. At this point of the operation Dr. Ricketts came into assist with the rectal manipulation. He passed multiple sizers up without any difficulty followed by the 28 EEA stapler up to the rectal
stump. It seemed as if the stapler was naturally following somewhat posterior to the previous staple line so the spike was deployed and the anvil was attached. The stapler was then closed and fired after allowing a sufficient amount of time for
any edema to dissipate. We did ensure that the mesentery of the descending colon was well oriented before firing. After the anastomosis was created we confirmed that the donuts were intact and a flexible sigmoidoscopy was performed after flooding
the anastomosis with saline. There was no air bubbles and the anastomosis appeared to be airtight confirming a negative leak test. The pelvis was suctioned dry and the anterior portion of the staple line was reinforced with some interrupted 3-0
Vicryl sutures in a Lembert fashion. We then turned our attention back to the abdomen to ensure hemostasis had been achieved. There was no further bleeding in the left abdominal sidewall or inferior to the pancreas. All sponges were removed and
the small bowel was allowed to return to its normal anatomical position. His previous drain was brought back into the field and laid across the pelvis and up the left colic gutter. We then closed the abdomen using running 0 PDS suture anchored at
each apex and run and tied together in the middle. The subcutaneous space was irrigated with saline and the skin was then closed with mercedes. An Aquacel dressing was placed and the ANGEL drain was put to bulb suction. All counts were correct at the
end of procedure. The patient tolerated the procedure well. They were extubated and taken to the recovery area for hemodynamic monitoring.
I was the attending physician and performed the procedure with assistance from the SOFTWARE DESIGNER above as well as Dr. Ricketts who was instrumental in performing the colorectal anastomosis as well as the flexible sigmoidoscopy. I was present for all portions
of the case
Derek Boone MD
--- NOTE | 2023-11-15 10:33 | CM ---
Met with patient in room to discuss discharge plan. Informed patient that per his Attending, that he will be discharged tomorrow if stable
Patient was ambulating in room independently
Drain was removed
Patient reported that his neighbor will provide transport home @ discharge
IMM benefit explained; form signed @ 1027
Plan: discharge to home tomorrow; no services needed
P
[2023-11-15] MEDS: FLUSH (NSS) 2 FLUSH IV ×2 (12:21→17:11)
--- NOTE | 2023-11-15 13:46 | W.PN.HOSP.TC ---
Today's Communication/Plan
-
monitor for any bleeding at prior drain site
continue IV Abx
Assessment / Plan
Assessment / Plan
Assessment:
Severe Sepsis POA (Fever, leukocytosis, lactic acidosis)
Acute complicated diverticulitis with perforated diverticulum
- CT A/P with IV contrast showed large focal perforation of the mid sigmoid colon with acute diverticulitis
- s/p Laparoscopic, converted to open sigmoid colectomy 11/08
- s/p ex-lap partial colectomy with colorectal anastomosis 11/10
- continue Zosyn, day 4 post-recent OR (total day 7). Operative culture showed E. Coli and Pseudomonas.
- NGT remove and Brar removed 11/12
- continue LRD
- GS following
Drain site bleeding
- CTA did confirm of the drain was through the right inferior epigastrics however no active extravasation. The bleeding has stopped since taking the bulb off suction and giving 1 g of TXA.
- GS managing.
- no current bleeding with drain now removed
Acute anemia/thrombocytopenia
- likely from acute illness, sepsis, post-op
- Counts are improving, continue to monitor
Hypocalcemia
- s/p 2 gram CaCl, with improvement
- trend BMP
Abnormal UA
- Ucx without growth
Essential Hypertension
- continue lisinopril and hydrochlorothiazide
GERD/Giles's esophagus
- continue PPI
Hypokalemia - resolved
DVT ppx: SCDs
Code: Full
Anticipated Discharge: Within 24 hours
Subjective/Interval History
-
Date of Service: November 15, 2023
ANGEL drain removed, no further bleeding from drain site after TXA
tolerating diet
Objective Data
-
Labs:
Laboratory Results
11/15/23
06:13
WBC 5.5
Hgb 11.0 L
Hct 31.6 L
Plt Count 163
Sodium 139
Potassium 3.6
Chloride 101
Carbon Dioxide 29
BUN 14
Creatinine 1.0
Glucose 106 H
Calcium 9.2
Vital Signs:
Vital Signs
Temp Pulse Resp BP Pulse Ox
98.2 F 70 18 146/87 99
11/15/23 07:10 11/15/23 08:08 11/15/23 07:10 11/15/23 08:08 11/15/23 08:15
I&O
11/14/23 11/15/23 11/16/23
06:59 06:59 06:59
Intake Total 1180 / 1180 960 / 960
Output Total 1285 / 1285 2130 / 2130 25 / 25
Balance -105 / -105 -1170 / -1170 -25 / -25
Physical Exam
-
General: No Apparent Distress
HEENT: Normocephalic and Atraumatic
Respiratory: Clear to Auscultation; Negative Wheezes or Rales
Cardiac: Regular Rhythm and S1/S2
Musculoskeletal: No Edema
Neuro: AO x 3
Psych: Calm
Data Reviewed
-
Total Time Spent with Patient (in minutes): 42
Labs: Labs Reviewed by me
[2023-11-15 15:25] VITALS: BP 128/78
[2023-11-15] MEDS: HYDROCORTISONE 1% CREAM 1 APPLIC TOPICAL (21:43)
--- NOTE | 2023-11-15 21:49 | PTCARENOTE ---
Notified house provider, Joi WISE, of itchy diffuse raised red rash on pts back. Hydrocortisone cream ordered and applied to pts back.
[2023-11-16 00:21] VITALS: BP 132/69
[2023-11-16] MEDS: ZOSYN 50 IV ×2 (05:27→12:32)
[2023-11-16 06:00] VITALS: BMI 25.3
[2023-11-16 07:02] LABS: % Basophils 0.6 % (0-2); % Eosinophils 1.9 % (0-6); % Immature Granulocytes 1.7 % (0-0.5); % Lymphocytes 27.6 % (20.5-51.1); % Monocytes 9.2 % (1.7-9.3); Absolute Eosinophils 0.1 10^3/uL (0-0.7); Absolute Immature Granulocytes 0.1 10^3/uL (0-0.05); Absolute Lymphocytes 1.4 10^3/uL (1.2-3.4); Absolute Monocytes 0.5 10^3/uL (0.1-0.6); Absolute Neutrophils 3.1 10^3/uL (1.4-6.5); Hematocrit 28.1 % (39.0-52.0); Hemoglobin 9.6 g/dL (13.0-18.0); Mean Corp Hgb Conc. 34.2 g/dL (33.0-37.0); Mean Corpuscular Hgb 31.2 pg (27.0-31.0); Mean Corpuscular Volume 91.2 fL (80.0-94.0); Mean Platelet Volume 10.9 fL (7.4-10.4); Nucleated Red Blood Cells % 0 % (-); Platelet Count 165 10^3/uL (130-400); Red Blood Cell Count 3.08 10^6/uL (4.70-6.10); White Blood Cell Count 5.2 10^3/uL (4.8-10.8)
[2023-11-16 07:15] VITALS: BP 143/85
[2023-11-16 07:23] LABS: Blood Urea Nitrogen 16 mg/dl (9-20); Calcium 9.3 mg/dl (8.4-10.2); Carbon Dioxide 31 mmol/L (22-30); Chloride 102 mmol/L (98-107); Estimated Creatinine Clearance 57 ml/min; Glucose 100 mg/dl (70-99); Potassium 3.4 mmol/L (3.5-5.1); Sodium 142 mmol/L (135-145); eGFR > 60.00
--- NOTE | 2023-11-16 08:39 | W.PN.GS2 ---
Today's Communication / Plan
-
dispo planning
Assessment / Plan
-
Assessment:
78 yo male who presented with acute perforated sigmoid diverticulitis and peritonitis, POD#7 s/p laparoscopic converted to open sigmoidectomy, left in discontinuity now POD #5 open partial colectomy with colorectal anastomosis. Doing well, expected
postoperative course. Bleeding at ANGEL site on 11/13- with ANGEL removed on 11/14 and no further bleeding.
AFVSS
Mild hypokalemia, replaced
Acute anemia noted with slight drift overnight, suspect secondary to equilibration from prior blood losses. No active bleeding noted on exam. Resolving ecchymosis to incision.
tolerating diet with good bowel function
--C/W LRD
--Repeat h/h later today
--C/W ABX: OR cx sent, showed E. Coli and Pseudomonas, final day of ABX
--Continue analgesics/antiemetics as needed (Tylenol, Toradol, Tramadol)
--Continue PO Protonix
--OK to shower
--Local wound care
--SCDs/Lovenox for VTE ppx
Tentative ready for d/c later today vs tomorrow pending repeat labs/patient course
Subjective Data
-
Date of Service: November 16, 2023
Patient seen and examined at bedside. Tolerating diet. Passing stools and flatus. Denies n/v. Pain is very minimal. OOB ambulating in halls. Eager to go home.
Objective Data
-
Intake and Output
11/15/23 11/16/23 11/17/23
06:59 06:59 06:59
Intake Total 960 / 960 1180 / 1180
Output Total 2130 / 2130 225 / 225
Balance -1170 / -1170 955 / 955
Intake:
Oral fluids 600 / 600 1080 / 1080
IV fluids (Total) 50 / 50
IV piggybacks 310 / 310 100 / 100
Output:
Drain Output (Total) 80 / 80 25
Right Lower Abdomen Varinder- 80 / 80
Carter
Urine, Voided 2049 / 2049 200 / 200
Other:
Number of approximated SMALL 3
amounts of urine
Number of approximated MODERATE 1 6
amounts of urine
Number of approximated LARGE 2
amounts of urine
Vital Signs
Temp Pulse Resp BP Pulse Ox
98.9 F 83 14 143/85 95
11/16/23 07:15 11/16/23 07:15 11/16/23 07:15 11/16/23 07:15 11/16/23 07:15
Lab Results
11/16/23 05:08
11/16/23 05:08
Calcium 9.3 mg/dl (8.4-10.2) 11/16/23 05:08
Magnesium 2.0 mg/dl (1.6-2.3) 11/10/23 04:32
Total Bilirubin 1.0 mg/dl (0.2-1.3) 11/09/23 09:39
AST 34 U/L (17-59) 11/09/23 09:39
ALT 20 U/L (0-50) 11/09/23 09:39
Alkaline Phosphatase 95 U/L (38-126) 11/09/23 09:39
Total Protein 7.5 g/dl (6.3-8.2) 11/09/23 09:39
Albumin 4.8 g/dl (3.5-5.0) 11/09/23 09:39
Physical Exam
-
GENERAL/NEURO: Awake, Alert, no distress
CHEST: Unlabored breathing on RA
ABDOMEN: Soft, Non-Tender, Non-Distended, ANGEL site with minimal blood on dressing (changed). Midline incision with intact staple line, no drainage: resolving ecchymosis. Lap incisions well approximated and healing well.
[2023-11-16] MEDS: LIPITOR 20 MG PO (08:54)
[2023-11-16] MEDS: ZESTRIL 20 MG PO (08:54)
[2023-11-16] MEDS: ORETIC 12.5 MG PO (08:54)
[2023-11-16] MEDS: PROTONIX 40 MG PO (08:54)
[2023-11-16] MEDS: KCL 40 MEQ PO (08:54)
[2023-11-16] MEDS: HYDROCORTISONE 1% CREAM 1 APPLIC TOPICAL (09:01)
--- NOTE | 2023-11-16 12:14 | CM ---
Patient seen at bedside. Patient states that he is planning for discharge today. IMM completed per chart 11/15/23. Patient states that he has no needs for discharge and has a ride home. CM will continue to follow for discharge planning needs.
Plan; home with no needs anticipated
--- NOTE | 2023-11-16 12:19 | W.PN.HOSP.TC ---
Today's Communication/Plan
-
pending repeat Hb if stable, dc home
Assessment / Plan
Assessment / Plan
Assessment:
Severe Sepsis POA (Fever, leukocytosis, lactic acidosis)
Acute complicated diverticulitis with perforated diverticulum
- CT A/P with IV contrast showed large focal perforation of the mid sigmoid colon with acute diverticulitis
- s/p Laparoscopic, converted to open sigmoid colectomy 11/08
- s/p ex-lap partial colectomy with colorectal anastomosis 11/10
- continue Zosyn, day 4 post-recent OR (total day 8). Operative culture showed E. Coli and Pseudomonas. Last day of Abx
- NGT remove and Brar removed 11/12
- continue LRD
- GS following
Drain site bleeding
- CTA did confirm of the drain was through the right inferior epigastrics however no active extravasation. The bleeding has stopped since taking the bulb off suction and giving 1 g of TXA.
- GS managing.
- no current bleeding with drain now removed
- follow repeat Hb and if stable, ok for dc home overall
Acute anemia/thrombocytopenia
- likely from acute illness, sepsis, post-op
- Counts are improving, continue to monitor
Hypocalcemia
- s/p 2 gram CaCl, with improvement
- trend BMP
Abnormal UA
- Ucx without growth
Essential Hypertension
- continue lisinopril and hydrochlorothiazide
GERD/Giles's esophagus
- continue PPI
Hypokalemia - resolved
DVT ppx: SCDs
Code: Full
Anticipated Discharge: Today
Subjective/Interval History
-
Date of Service: November 16, 2023
no further bleeding
Hb 9.6, repeat pending
Objective Data
-
Labs:
Laboratory Results
11/16/23 11/16/23
05:08 12:00
WBC 5.2
Hgb 9.6 L Pending
Hct 28.1 L Pending
Plt Count 165
Sodium 142
Potassium 3.4 L
Chloride 102
Carbon Dioxide 31 H
BUN 16
Creatinine 1.0
Glucose 100 H
Calcium 9.3
Vital Signs:
Vital Signs
Temp Pulse Resp BP Pulse Ox
98.9 F 83 14 143/85 95
11/16/23 07:15 11/16/23 07:15 11/16/23 07:15 11/16/23 07:15 11/16/23 07:15
I&O
11/15/23 11/16/23 11/17/23
06:59 06:59 06:59
Intake Total 960 / 960 1180 / 1180
Output Total 2130 / 2130 225 / 225
Balance -1170 / -1170 955 / 955
Physical Exam
-
General: No Apparent Distress
HEENT: Normocephalic and Atraumatic
Respiratory: Negative Wheezes
Cardiac: Regular Rhythm and S1/S2
GI: Soft
Genito-urinary: No Costovertebral Tender
Neuro: AO x 3
Hematologic / Lymphatic: No Lymphadenopathy
Psych: Calm
Data Reviewed
-
Total Time Spent with Patient (in minutes): 41
Labs: Labs Reviewed by me
[2023-11-16] MEDS: FLUSH (NSS) 2 FLUSH IV (12:32)
[2023-11-16 12:39] LABS: Hematocrit 28.7 % (39.0-52.0); Hemoglobin 9.9 g/dL (13.0-18.0)
--- NOTE | 2023-11-16 13:06 | W.DS.TRANS ---
DC Summary - [place]burrer Strip
-
Discharge Instructions:
Discharge Diagnosis/Procedures Perforated diverticulitis. Open colectomy with
delayed colorectal anastomosis
Diet Low Fiber
Activity No strenuous activity
Additional Activity Do not lift over 15-20lbs for the next 2-3 weeks
Bathing Restrictions OK to Shower
Instructions:
Stand-Alone Forms:
Changes to Home Medications: No
Discharge Medications:
DC Medications w/original date entered in [employer]
atorvastatin 20 mg tablet 20 mg PO DAILY High Cholesterol 11/08/21
ferrous sulfate 325 mg (65 mg iron) tablet 325 mg PO BID Supplement 11/08/21
hydrochlorothiazide 12.5 mg capsule 12.5 mg PO DAILY Blood Pressure 11/08/21
lisinopril 20 mg tablet 20 mg PO DAILY Blood Pressure 11/08/21
omeprazole 20 mg tablet,delayed release 20 mg PO DAILY Gastrointestinal Issue 11/08/21
vitamins A,C,U-zpsa-rttqkc 4,296 mcg-226 mg-90 mg capsule (PreserVision AREDS) 1 cap PO BID Supplement 11/08/21
acetaminophen 325 mg tablet 650 mg (2 x 325 mg) PO Q6HPRN PRN mild pain #14 tabs 11/15/23
ibuprofen 600 mg tablet 600 mg PO Q6H PRN pain #14 tabs 11/15/23
oxycodone 5 mg tablet 5 mg PO Q6HPRN PRN breakthrough/severe pain #8 tabs 11/15/23
Home Medication Changes
Pending Results: No
Total time spent discharging patient (in min): 41
[2023-11-16 13:45] VITALS: BP 154/89
== END 2023-11-16 13:48 | disposition home or self-care (01) | DRG 853 ==
LOC: 2 SOUTH 13:48
PROVIDERS: Internal Medicine; Registered Nurse; Surgery; ADMITTING PHYSICIAN Internal Medicine; ATTENDING PHYSICIAN Internal Medicine; CONSULT PHYSICIAN Surgery; EMERGENCY PHYSICIAN Student in an Organized Health Care Education/Training Program; FAMILY PHYSICIAN Family Medicine
PROC: 0DBN0ZZ Excision of Sigmoid Colon, Open Approach (ICD-10-PCS; 2023-11-09)
PROC: 3E1M48Z Irrigation of Peritoneal Cavity using Irrigating Substance, Percutaneous Endoscopic Approach (ICD-10-PCS; 2023-11-09)
PROC: 0D9670Z Drainage of Stomach with Drainage Device, Via Natural or Artificial Opening (ICD-10-PCS; 2023-11-10)
PROC: 0D1M0ZP Bypass Descending Colon to Rectum, Open Approach (ICD-10-PCS; 2023-11-11)
PROC: 0DJD8ZZ Inspection of Lower Intestinal Tract, Via Natural or Artificial Opening Endoscopic (ICD-10-PCS; 2023-11-11)
PROC: 0FQG0ZZ Repair Pancreas, Open Approach (ICD-10-PCS; 2023-11-11)
DX: A41.9 Sepsis, unspecified organism (principal); K65.9 Peritonitis, unspecified; K57.20 Diverticulitis of large intestine with perforation and abscess without bleeding; K91.71 Accidental puncture and laceration of a digestive system organ or structure during a digestive system procedure; D62 Acute posthemorrhagic anemia; N18.9 Chronic kidney disease, unspecified; I12.9 Hypertensive chronic kidney disease with stage 1 through stage 4 chronic kidney disease, or unspecified chronic kidney disease; E78.00 Pure hypercholesterolemia, unspecified; D69.59 Other secondary thrombocytopenia; K59.00 Constipation, unspecified; E83.51 Hypocalcemia; R65.20 Severe sepsis without septic shock; Y65.8 Other specified misadventures during surgical and medical care; Y92.234 Operating room of hospital as the place of occurrence of the external cause; R82.90 Unspecified abnormal findings in urine; R11.2 Nausea with vomiting, unspecified; B96.20 Unspecified Escherichia coli [E. coli] as the cause of diseases classified elsewhere; B96.5 Pseudomonas (aeruginosa) (mallei) (pseudomallei) as the cause of diseases classified elsewhere; E87.6 Hypokalemia; K22.70 Barrett's esophagus without dysplasia; D50.9 Iron deficiency anemia, unspecified; D72.819 Decreased white blood cell count, unspecified; K21.9 Gastro-esophageal reflux disease without esophagitis; Z53.31 Laparoscopic surgical procedure converted to open procedure; Z87.891 Personal history of nicotine dependence
CPT/HCPCS: 88307; 71045; 74174; 74177; 80048; 80053; 81003; 81015; 83605; 83690; 83735; 85014; 85018; 85025; 85027; 85610; 85730; 86850; 86900; 86901; 87070; 87075; 87076; 87077; 87086; 87186; 87205; 96361; 96365; 96375; 96376; 97162; 99291; C1776; Q9967

== ENCOUNTER → 2024-06-05 09:11 | Outpatient (REF) | payer MEDICARE, SELFPAY | LOC: HWRAD 09:11 | PROVIDERS: ATTENDING PHYSICIAN Physician Assistant; FAMILY PHYSICIAN Family Medicine | DX: E04.2 Nontoxic multinodular goiter (principal) | CPT/HCPCS: 76536 ==

== ENCOUNTER → 2024-12-25 09:37 | Outpatient (REF) | payer MEDICARE, SELFPAY | LOC: HWRAD 09:37 | PROVIDERS: ATTENDING PHYSICIAN Family Medicine | DX: Z87.891 Personal history of nicotine dependence (principal) | CPT/HCPCS: 71271 ==